=== PATIENT | male | born 1965 | race Caucasian/White ===

== ENCOUNTER 2023-08-20 08:52 | Outpatient (AMB) | payer OTHER, SELFPAY ==
[2023-08-20 08:54] VITALS: BP 140/80; PULSE 69; O2SAT 99; BMI 27.8
--- NOTE | 2023-08-20 08:54 | MHC.PC.OV ---
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 Past medical history significant for hypothyroidism, hypercholesteremia, elevated blood pressure without the diagnosis of hypertension. Patient's blood pressure is 140/80 in office today. Patient advised to follow low-salt diet exercise and will follow-up in 3 months for blood pressure recheck. Patient denies any chest pain, palpitations, shortness of breath and syncope. Eye exam recommended every couple years. Patient reports smoked from age [age], patient reports smoking 1 pack a day or if he was drinking alcohol would smoke 2 packs in 1 day. Discussed lung cancer screening program with patient. Patient agreeable to referral Colonoscopy: Patient reports had completed at age 56, states was recommended to follow-up in 5 years,? Tubular adenoma hx, will request records from [facility]. Flu shot declined. Fasting labs ordered. [facility] Medical History (Updated 08/20/23 @ 09:28 by SUDHA Amos) Lipoma of anterior chest wall Surgical History (Updated 08/20/23 @ 09:09 by SUDHA Amos) History of hand surgery H/O right inguinal hernia repair Family History (Updated 08/20/23 @ 09:10 by SUDHA Amos) Mother Diabetes Father Diabetes Alcoholism Sister Diabetes Social History Housing: House Alcohol intake: former Patient Tobacco Use Status: Former Tobacco user Quit Date: 02/2023 Tobacco use type: Cigarette service: No Current occupational status: retired Cognitive needs: No Hearing needs: No Vision needs: No Questionnaire PHQ-9 Over the last 2 weeks, how often have you been bothered by any of the following problems? 1. Little interest or pleasure in doing things: not at all 2. Feeling down, depressed, or hopeless: not at all 3. Trouble falling or staying asleep, or sleeping too much: not at all 4. Feeling tired or having little energy: not at all 5. Poor appetite or overeating: not at all 6. Feeling bad about yourself - or that you are a failure or have let yourself or your family down: not at all 7. Trouble concentrating on things, such as reading the newspaper or watching television: not at all 8. Moving or speaking so slowly that other people could have noticed. Or the opposite - being so fidgety or restless that you have been moving around a lot more than usual: not at all 9. Thoughts that you would be better off or of hurting yourself in some way: not at all Total score: 0 Depression Screening Interpretation: Negative Depression Screening Done: Yes 71747 - PHQ-9 Billing: Yes Source: Developed by Drs. Ilya Waldrop, Jeni Ji, Jose Blair and colleagues, with an educational liam from [employer]. Thrive Questionnaire Date Thrive assessed: 08/20/23 I am a: Patient What is your living situation today?: I have a steady place to live Within the past 12 months, did the food you bought not last and you didn't have the money to get more?: Never true Within the past 12 months, did you worry whether your food would run out before you got money to buy more?: Never true Do you have trouble paying for medicines?: No Do you have trouble getting transportation to medical appointments?: No Do you have trouble paying your heating and electricity bill?: No Do you have trouble taking care of your child, family member or friend?: No Do you have trouble with day-to-day activities such as bathing, preparing meals, shopping, managing finances, etc.?: No Are you currently unemployed and looking for a job?: No Are you interested in more education?: No AUDIT C Alcohol Use Questionnaire (AUDIT-C) 1. How often do you have a drink containing alcohol?: Never (quit 3 years ago ) 2. How many drinks containing alcohol do you have on a typical day when you are drinking?: 1 or 2 3. How often do you have six or more drinks on one occasion?: Never Total Score: 0 JONATHAN-7 AMB Questionnaire JONATHAN-7 Date JONATHAN - 7 assessed: 08/20/23 Feeling nervous, anxious, or on edge: 0 = Not at all Not being able to stop or control worryin = Not at all Worrying too much about different things: 0 = Not at all Trouble relaxin = Not at all Being so restless that it is hard to sit still: 0 = Not at all Becoming easily annoyed or irritable: 0 = Not at all Feeling afraid as if something awful might happen: 0 = Not at all Total JONATHAN-7 score (0-4 normal; 5-9 mild; 10-14 moderate; 15-21 severe): 0 Source: Developed by Drs. Ilya Waldrop, Jeni Ji, Jose Blair and colleagues, with an educational liam from [employer]. JOANTHAN-7 Assessment Billing JONATHAN-7 Assessment Tool: JONATHAN-7 Assessment 27674 Review of Systems Const Denies chills, Denies fatigue, Denies fever(s) and Denies poor appetite Eyes Denies no additional complaints ENT Reports Normal hearing present Card Denies chest pain, Denies syncope, Denies rapid heart rate and Denies dyspnea Resp Denies cough and Denies dyspnea GI Denies change in stool character, Denies constipation, Denies diarrhea, Denies nausea and Denies vomiting Denies dysuria, Denies urinary frequency and Denies urinary urgency Neuro Reports Normal hearing present, Denies confusion and Denies syncope Psych Denies confusion Endo Denies fatigue Physical exam (Primary Care) Vital Signs: Last Vital Signs Pulse 69 08/20/23 08:54 BP 140/80 H 08/20/23 08:54 Pulse Ox 99 08/20/23 08:54 Oxygen Delivery Method Room Air 08/20/23 08:54 BMI result Body Mass Index 27.8 Tobacco/Smoking Status: Tobacco use Status Tobacco use date assessed 08/20/23 08/20/23 09:03 Patient Tobacco Use Status Former Tobacco user 08/20/23 09:11 Tobacco use type Cigarette 08/20/23 09:11 PHQ-9: PHQ-9 Score PHQ-9: Total score 0 08/20/23 09:12 Depression Screening Interpretation: Negative Thrive Assessment: Date of Thrive Assessment Date Thrive assessed 08/20/23 08/20/23 09:03 Const General: No confusion Orientation/consciousness: No confusion HENMT Head: Yes normocephalic and Yes atraumatic Ears: external ears normal and TM's normal bilaterally General nose exam: Normal external nose present and Normal nasal mucous membranes and turbinates present Face and sinus: Yes normal facial exam and Yes sinuses nontender Mouth: moist mucous membranes Throat: Yes tonsils normal Eyes Conjunctivae: conjunctivae normal Sclerae: sclerae normal Pupils: Equal, round and reactive pupils present and Pupils normal by confrontation EOM: EOMs intact bilaterally Direct Ophthalmoscopy: normal light reflex Neck Neck: Yes no lymphadenopathy and Yes supple Thyroid: Thyroid normal Chest Chest palpation & inspection: normal inspection of the chest Resp Effort & Inspection: normal respiratory effort Auscultation: clear to auscultation bilaterally, no crackles, no rhonchi and no wheezes Cardio Rate: regular rate Rhythm: regular rhythm Peripheral pulses: radial pulses present and dorsalis pedis present GI Inspection: Yes normal to inspection Palpation (GI): Soft to palpation, nontender and No hepatosplenomegaly present Auscultation: normoactive bowel sounds Skin General skin exam: no rashes or lesions noted Neuro General: No confusion Cranial nerves: Yes Equal, round and reactive pupils present and Yes Normal hearing present Cognition (Neuro): normal cognition Gait exam (Neuro): Normal gait present Motor exam (neuro): 5/5 motor strength present throughout Deep tendon reflexes (DTR's): Right brachioradialis reflex intensity grade: 2+, Left brachioradialis reflex intensity grade: 2+, Right patellar reflex intensity grade: 2+ and Left patellar reflex intensity grade: 2+ Extrem General: No edema Assessment and Plan Assessment & Plan (1) Hypothyroidism: Code(s): E03.9 - Hypothyroidism, unspecified Plan: Continue on levothyroxine 75 mcg daily TSH level ordered (2) Hypercholesteremia: Code(s): E78.00 - Pure hypercholesterolemia, unspecified Plan: Fasting lipid panel ordered. Avoid fried foods, chicken skin, eggs, butter,margarine, pastries and?? red meat. (3) Physical exam, annual: Code(s): Z00.00 - Encounter for general adult medical examination without abnormal findings Plan: Follow-up in 1 year. (4) Elevated blood pressure reading in office without diagnosis of hypertension: Code(s): R03.0 - Elevated blood-pressure reading, without diagnosis of hypertension Plan: Blood pressure elevated office today 140/80. Patient advised to follow low-salt diet exercise. Follow-up in 3 months for blood pressure recheck. (5) Smoker within last 12 months: Code(s): Z87.891 - Personal history of nicotine dependence Plan Follow-up in 3 months Orders: Orders Complete Blood Count Auto Diff Today Z13.0 - Encounter for screening for diseases of the blood and blood-forming organs and certain disorders involving the immune mechanism Comprehensive [place]. Panel Fast Today E78.00 - Pure hypercholesterolemia, unspecified Lipid Panel Today E78.00 - Pure hypercholesterolemia, unspecified TSH reflex Free T4 Today Z13.29 - Encounter for screening for other suspected endocrine disorder Prostate Specific Antigen Scr Today Z12.5 - Encounter for screening for malignant neoplasm of prostate Referrals Thoracic Surgery Referral Z87.891 - Personal history of nicotine dependence Coding Level of Care Code New Pt Prev Care 40-64y(74023) Diagnoses Hypothyroidism E03.9 Hypercholesteremia E78.00 Physical exam, annual Z00.00 Elevated blood pressure reading in office without diagnosis of hypertension R03.0 Smoker within last 12 months Z87.891 Additional Codes JONATHAN-7 Assessment Billing - JONATHAN-7 Assessment Tool: JONATHAN-7 Assessment 56117 ([id number])
== END 2023-08-20 09:24 | disposition home or self-care (01) ==
PROVIDERS: PCP Nurse Practitioner Family; Visit Provider Nurse Practitioner Family
DX: E03.9 Hypothyroidism, unspecified (principal); E78.00 Pure hypercholesterolemia, unspecified; Z00.00 Encounter for general adult medical examination without abnormal findings; R03.0 Elevated blood-pressure reading, without diagnosis of hypertension; Z87.891 Personal history of nicotine dependence
CPT/HCPCS: 99386

== ENCOUNTER 2023-09-14 06:10 | Outpatient (REF) | payer OTHER, SELFPAY ==
[2023-09-14 06:21] LABS: MANUAL DIFF FLAG NO
[2023-09-14 07:34] LABS: Basophils Absolute Auto 0.2 X10*3/uL (0.0-0.2); Eosinophils Absolute Auto 0.5 X10*3/uL (0.0-0.4); Eosinophils Percent Auto 5.1 % (0-4); Hematocrit 43.2 % (42.0-52.0); Hemoglobin 15.1 g/dl (14.0-18.0); Imm Gran Abs Auto 0.03 X10*3/uL (0.00-0.03); Imm Gran Pct Auto 0.3 % (0.0-0.4); Lymphocytes Absolute Auto 2.9 X10*3/uL (1.2-4.9); Lymphocytes Percent Auto 30.3 % (20-40); Mean Corpuscular Hemoglobin 31.1 pg (27.0-33.0); Mean Corpuscular Volume 88.9 fL (80.0-98.0); Mean Platelet Volume 11.2 fL (9.4-12.4); Monocytes Absolute Auto 0.7 X10*3/uL (0.1-1.2); Monocytes Percent Auto 7.1 % (2-11); Neutrophils Absolute Auto 5.2 x10*3/uL (2.0-8.3); Neutrophils Percent Auto 55.2 % (45-73); Platelet Count 427 X10*3/uL (160-400); Red Blood Count 4.86 X10*6/uL (4.60-5.80); Red Cell Distribution Width 12.4 % (11.0-16.0); White Blood Count 9.5 X10*3/uL (4.8-10.8)
[2023-09-14 08:20] LABS: Alanine Aminotransferase 31 U/L (0-40); Albumin Level 4.4 g/dL (3.5-5.0); Alkaline Phosphatase 94 U/L (39-117); Aspartate Amino Transferase 21 U/L (5-37); Bilirubin Total 0.4 mg/dL (0.0-1.0); Blood Urea Nitrogen 11 mg/dL (9-16); Calcium 9.7 mg/dL (8.4-10.2); Cholesterol 240 mg/dL (<200); Estimated Glomerular Filt Rate > 60; Glucose Fasting 106 mg/dL (60-99); HDL Cholesterol 35 mg/dL (>40); LDL Cholesterol Calculated 138 mg/dL (<100); Total Protein 7.8 g/dL (6.5-8.0); Triglycerides 337 mg/dL (<150)
[2023-09-14 08:21] LABS: Prostate Specific Antigen Scr 0.46 ng/mL (<0.05-4.0)
[2023-09-14 08:32] LABS: TSH reflex Free T4 55.91 uIU/mL (0.32-4.0)
[2023-09-14 08:43] LABS: Anion Gap 12 (12-20); Carbon Dioxide 24 mmol/L (22-29); Chloride 107 mmol/L (96-108); Potassium 4.2 mmol/L (3.3-5.1); Sodium 139 mmol/L (135-145)
[2023-09-14 09:06] LABS: Free T4 (Free Thyroxine) 0.46 ng/dL (0.71-1.85)
== END 2023-09-14 06:11 | disposition home or self-care (01) ==
LOC: HO.LAB 06:10
PROVIDERS: PCP Nurse Practitioner Family; Visit Provider Nurse Practitioner Family
DX: Z12.5 Encounter for screening for malignant neoplasm of prostate (principal); Z13.0 Encounter for screening for diseases of the blood and blood-forming organs and certain disorders involving the immune mechanism; Z13.29 Encounter for screening for other suspected endocrine disorder; E78.00 Pure hypercholesterolemia, unspecified
CPT/HCPCS: 36415; 80053; 80061; 84153; 84439; 84443; 85025

== ENCOUNTER 2023-11-05 10:54 | Outpatient (AMB) | payer OTHER, SELFPAY ==
--- NOTE | 2023-11-05 11:04 | MHC.OFFVIS ---
Intake Intake Visit Reasons: LDCT SD Allergies morphine Allergy (Mild, Uncoded 08/20/23 08:57) Vomiting HPI HPI Comments History of Present Illness Details Dagoberto is a pleasant 58 year old male, former smoker with a 46 PYH. Patient has been smoking since age 13 for 46 years at 1 ppd, quit approximately 1 year ago. Admits daily marijuana use. 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 Denies second hand smoke exposure. Denies known family history of lung cancer. Denies personal history of cancers. Denies recent travel outside the [place]. Denies fever, chills, chest pain, new cough, hemoptysis or unintentional weight loss. Lung Cancer Screening Questionnaire reviewed with patient by provider. Shared Decision Making Completed. Discussed in detail with patient, the risk versus benefit of LDCT screening. Patient in agreement of proceeding with scan. [facility] Medical History (Updated 09/14/23 @ 10:18 by SUDHA Amos) Deafness in left ear Lipoma of anterior chest wall Surgical History (Updated 08/20/23 @ 09:09 by SUDHA Amos) History of hand surgery H/O right inguinal hernia repair Family History (Updated 08/20/23 @ 09:10 by SUDHA Amos) Mother Diabetes Father Diabetes Alcoholism Sister Diabetes Social History Housing: House Alcohol intake: former Patient Tobacco Use Status: Former Tobacco user Quit Date: 02/2023 Tobacco use type: Cigarette service: No Current occupational status: retired Cognitive needs: No Hearing needs: No Vision needs: No Assessment & Plan Assessment & Plan (1) Smoker within last 12 months: Code(s): Z87.891 - Personal history of nicotine dependence Plan Shared decision-making visit completed today in office. This patient meets criteria for LDCT for lung cancer screening purposes and is asymptomatic. Patient has been scheduled for a low dose chest CT for screening purposes at [facility]. We discussed how the results will be obtained depending on CT findings. RADS 1 and RADS 2 will receive a letter with results and will follow up for annual LDCT. Patient informed they will be contacted at later date to schedule upcoming LDCT scan. RADS 3 and RADS 4 will receive a telephone call, or an office visit after reviewing case at our Lung Cancer Conference to determine when the next LDCT will be scheduled or further interventions that may be needed. Discussed importance of screening program and compliance with yearly LDCT scan as scheduled. Risks, benefits, and alternatives were discussed in detail and patient agrees to proceed. Risks discussed include but are not limited to: radiation exposure and possibility of additional intervention for benign disease. Benefits include detection of lung cancer at an early stage. A copy of today's visit and LDCT results will be sent to patient's PCP. Incidental findings on LDCT are PCP's responsibility. If there are incidental findings, our office will ensure that PCP office is aware of these findings. All questions were answered and patient is in agreement of plan. Coding Level of Care Code Lung Cancer Screening G0296 Diagnoses Smoker within last 12 months Z87.891
== END 2023-11-05 11:12 | disposition home or self-care (01) ==
PROVIDERS: PCP Nurse Practitioner Family; Visit Provider Nurse Practitioner Family
DX: Z87.891 Personal history of nicotine dependence (principal)
CPT/HCPCS: G0296

== ENCOUNTER 2023-11-05 11:13 | Outpatient (REF) | payer OTHER, SELFPAY ==
--- NOTE | ~2023-11-05 | CT_ITS ---
EXAMINATION: CT CHEST SCREENING CLINICAL INFORMATION: Personal history of nicotine dependence. 43 pack year; quit x 6 months. COMPARISON: None available. TECHNIQUE: Multidetector volumetric CT imaging of the chest is performed without contrast using low dose technique. Additional 2D coronal and sagittal reformatted images and axial 3D maximum intensity projection (MIP) images are generated on the CT workstation. This CT examination was performed using dose optimization techniques as appropriate, variously including the following: *Automated exposure control. *Adjustment of mA and/or kV according to patient size (this includes techniques or standardized protocols for targeted exams where dose is matched to indication/reason for exam; i.e. extremities or head). *Use of iterative reconstruction technique. DLP: 55.01 mGy-cm FINDINGS: LUNGS: Scattered punctate calcified granulomas are present ranging in size from 1 mm to 3 mm (5:366). There are a number of small noncalcified micronodules, the largest measuring: * 4 mm left upper lobe (5:177). * 3 mm right upper lobe (5:219). * 3 mm lingula (5:253). No worrisome or concerning-appearing nodules or masses are seen. MEDIASTINUM: The mediastinum is unremarkable. CORONARY ARTERY CALCIFICATION: None visualized on this study. PLEURA: There is no pleural effusion. No pleural mass or thickening. AXILLA: No lymphadenopathy. UPPER ABDOMEN: Unremarkable OSSEOUS STRUCTURES: Unremarkable. CT/CT lung screening IMPRESSION: Benign-appearing pulmonary nodules. ASSESSMENT: Lung-RADS category 2: Benign. RECOMMENDATION: Routine annual low-dose CT screening in 12 months.
== END 2023-11-05 11:14 | disposition home or self-care (01) ==
LOC: HO.CT 11:13
PROVIDERS: PCP Nurse Practitioner Family; Visit Provider Nurse Practitioner Family
DX: Z12.2 Encounter for screening for malignant neoplasm of respiratory organs (principal); Z87.891 Personal history of nicotine dependence
CPT/HCPCS: 71271; G0296

== ENCOUNTER 2023-11-22 06:22 | Outpatient (REF) | payer OTHER, SELFPAY ==
[2023-11-22 07:52] LABS: Estimated Average Glucose 111 mg/dL; Hemoglobin A1c % 5.5 % (<6.0)
[2023-11-22 08:17] LABS: Alanine Aminotransferase 27 U/L (0-40); Albumin Level 4.3 g/dL (3.5-5.0); Alkaline Phosphatase 85 U/L (39-117); Anion Gap 11 (12-20); Aspartate Amino Transferase 28 U/L (5-37); Bilirubin Total 0.3 mg/dL (0.0-1.0); Blood Urea Nitrogen 12 mg/dL (9-16); Calcium 9.7 mg/dL (8.4-10.2); Carbon Dioxide 25 mmol/L (22-29); Chloride 107 mmol/L (96-108); Cholesterol 186 mg/dL (<200); Estimated Glomerular Filt Rate > 60; Glucose Fasting 105 mg/dL (60-99); HDL Cholesterol 35 mg/dL (>40); LDL Cholesterol Calculated 102 mg/dL (<100); Potassium 4.1 mmol/L (3.3-5.1); Sodium 139 mmol/L (135-145); Total Protein 7.6 g/dL (6.5-8.0); Triglycerides 249 mg/dL (<150)
[2023-11-22 08:35] LABS: TSH reflex Free T4 1.44 uIU/mL (0.32-4.0)
== END 2023-11-22 06:23 | disposition home or self-care (01) ==
LOC: HO.LAB 06:22
PROVIDERS: Visit Provider Nurse Practitioner Family
DX: R73.01 Impaired fasting glucose (principal); E78.00 Pure hypercholesterolemia, unspecified; Z13.29 Encounter for screening for other suspected endocrine disorder
CPT/HCPCS: 36415; 80053; 80061; 83036; 84443

== ENCOUNTER 2023-11-22 09:50 | Outpatient (AMB) | payer OTHER, SELFPAY ==
--- NOTE | 2023-11-22 09:51 | A.OFFPC_ITS ---
Vital Signs 11/22/23 09:53 Height 5 ft 5 in Weight 170 lb 8 oz BMI 28.4 BP 112/68 Blood Pressure Location Lt brachial Position Sitting Pulse 78 Pulse Source Pulse Oximeter Pulse Oximetry (%) 99 Oxygen Delivery Method Room Air Intake Visit Reasons: 3mth f/u Elevated BP Intake Note: Patient is here to follow up on high blood pressure. Requesting for Dermatology referral for rash on/ redness on both hands, referral to ENT due to constant ringing in the left ear. 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 I will be assuming his care as his previous primary care provider has left the practice. Patient had blood work done today and would like to get the results on the same. He is taking the cholesterol and thyroid medication at the suggested dose regularly. Patient has noticed a ringing sensation in the left ear. He is having difficulty maintaining a conversation with his . He is deaf in the right ear as a child. Patient underwent a low-dose CT of the chest for lung cancer screening. He would like to know the result. Patient also has severe eczema in both his hands with disfigured nails. He wants to see a electromedical equipment repairer and unfortunately his insurance changed. He has had this condition all his life. [facility] Medical History (Updated 11/22/23 @ 10:45 by Andrew Delarosa MD) Hypercholesteremia Hypothyroidism Deafness in right ear Tinnitus of left ear Dystrophic nail Eczema of both hands Lipoma of anterior chest wall Surgical History History of hand surgery H/O right inguinal hernia repair Family History Mother Diabetes Father Diabetes Alcoholism Sister Diabetes Other Substance use disorder Social History Housing: House Alcohol intake: former Patient Tobacco Use Status: Former Tobacco user Quit Date: 02/2023 Tobacco use type: Cigarette e-Cigarette/Vaping Use: Never Used Second Hand Smoke Exposure: Yes service: No Current occupational status: retired Cognitive needs: No Hearing needs: No Vision needs: No Questionnaire PHQ-9 Over the last 2 weeks, how often have you been bothered by any of the following problems? 1. Little interest or pleasure in doing things: not at all 2. Feeling down, depressed, or hopeless: not at all 3. Trouble falling or staying asleep, or sleeping too much: not at all 4. Feeling tired or having little energy: not at all 5. Poor appetite or overeating: not at all 6. Feeling bad about yourself - or that you are a failure or have let yourself or your family down: not at all 7. Trouble concentrating on things, such as reading the newspaper or watching television: not at all 8. Moving or speaking so slowly that other people could have noticed. Or the opposite - being so fidgety or restless that you have been moving around a lot more than usual: not at all 9. Thoughts that you would be better off or of hurting yourself in some way: not at all Total score: 0 Depression Screening Interpretation: Negative Depression Screening Done: Yes Source: Developed by Drs. Ilya Waldrop, Jeni Ji, Jose Blair and colleagues, with an educational liam from [employer]. Thrive Questionnaire Date Thrive assessed: 11/22/23 I am a: Patient What is your living situation today?: I have a steady place to live Within the past 12 months, did the food you bought not last and you didn't have the money to get more?: Never true Within the past 12 months, did you worry whether your food would run out before you got money to buy more?: Never true Do you have trouble paying for medicines?: No Do you have trouble getting transportation to medical appointments?: No Do you have trouble paying your heating and electricity bill?: No Do you have trouble taking care of your child, family member or friend?: No Do you have trouble with day-to-day activities such as bathing, preparing meals, shopping, managing finances, etc.?: No Are you currently unemployed and looking for a job?: No Are you interested in more education?: No Currently or been in a relationship where the following occur: no concerns reported THRIVE Score: 0 AUDIT C Alcohol Use Questionnaire (AUDIT-C) 1. How often do you have a drink containing alcohol?: Never Total Score: 0 JONATHAN-7 AMB Questionnaire JONATHAN-7 Date JONATHAN - 7 assessed: 11/22/23 Feeling nervous, anxious, or on edge: 0 = Not at all Not being able to stop or control worryin = Not at all Worrying too much about different things: 0 = Not at all Trouble relaxin = Not at all Being so restless that it is hard to sit still: 0 = Not at all Becoming easily annoyed or irritable: 0 = Not at all Feeling afraid as if something awful might happen: 0 = Not at all Total JONATHAN-7 score (0-4 normal; 5-9 mild; 10-14 moderate; 15-21 severe): 0 Source: Developed by Drs. Ilya Waldrop, Jeni Ji, Jose Blair and colleagues, with an educational liam from [employer]. Physical exam (Primary Care) Vital Signs: Last Vital Signs Pulse 78 11/22/23 09:53 BP 112/68 11/22/23 09:53 Pulse Ox 99 11/22/23 09:53 Oxygen Delivery Method Room Air 11/22/23 09:53 Care Plan Goal for BP management: Blood pressure is in range. BMI result Body Mass Index 28.4 Tobacco/Smoking Status: Tobacco use Status Tobacco use date assessed 11/22/23 11/22/23 09:59 Patient Tobacco Use Status Former Tobacco user 11/22/23 09:59 Tobacco use type Cigarette 11/22/23 09:59 e-Cigarette/Vaping Use Never Used 11/22/23 09:59 PHQ-9: PHQ-9 Score PHQ-9: Total score 0 11/22/23 09:59 Depression Screening Interpretation: Negative Thrive Assessment: Date of Thrive Assessment Date Thrive assessed 11/22/23 11/22/23 09:59 Currently or been in a relationship where the following occur: no concerns reported Const General: cooperative and healthy appearing Nutritional Appearance: well nourished Orientation/consciousness: patient oriented x3 Limitations: no limitations HENMT Head: Yes normal to inspection Eyes General: appearance normal, both eyes and all related structures Neck Neck: Yes normal visual inspection Chest Chest palpation & inspection: normal palpation of entire chest wall Resp Effort & Inspection: normal respiratory effort Skin Other: Right and left hand: Eczematous changes in all fingers, terminal phalangeal deformities with fixed flexion deformities. Nails are thick and dystrophic. Neuro General: patient oriented x3 Assessment and Plan Assessment & Plan (1) Tinnitus of left ear: Code(s): H93.12 - Tinnitus, left ear Plan: ENT appointment has been requested. (2) Eczema of both hands: Code(s): L30.9 - Dermatitis, unspecified Plan: To % hydrocortisone has been started and a dermatology consult has been requested. (3) Dystrophic nail: Code(s): L60.3 - Nail dystrophy Plan: As above. (4) Hypothyroidism: Code(s): E03.9 - Hypothyroidism, unspecified Plan: Blood work reviewed. TSH is in range. Continue Synthroid at the same dosage. Prescription called in. (5) Hypercholesteremia: Code(s): E78.00 - Pure hypercholesterolemia, unspecified Plan: Blood work reviewed. Continue statins at same dosage. Orders: Referrals Ear/Nose/Throat Referral H93.12 - Tinnitus, left ear Dermatology Referral L30.9 - Dermatitis, unspecified, L60.3 - Nail dystrophy Medications: New hydrocortisone 2.5% 1 appl topical BID PRN 20 grams 0RF skin irritation Refilled levothyroxine 125 mcg PO DAILY 90 tabs 1RF atorvastatin 80 mg PO DAILY 90 tabs 1RF Coding Level of Care Code Est Pt Level 4 (87374) Diagnoses Tinnitus of left ear H93.12 Eczema of both hands L30.9 Dystrophic nail L60.3 Hypothyroidism E03.9 Hypercholesteremia E78.00
[2023-11-22 09:53] VITALS: BP 112/68; PULSE 78; O2SAT 99; BMI 28.4
== END 2023-11-22 11:12 | disposition home or self-care (01) ==
PROVIDERS: PCP Internal Medicine; Visit Provider Internal Medicine
DX: H93.12 Tinnitus, left ear (principal); L30.9 Dermatitis, unspecified; L60.3 Nail dystrophy; E03.9 Hypothyroidism, unspecified; E78.00 Pure hypercholesterolemia, unspecified
CPT/HCPCS: 99214

== ENCOUNTER 2025-03-26 06:01 | Outpatient (REF) | payer OTHER, SELFPAY ==
[2025-03-26 07:32] LABS: Estimated Average Glucose 117 mg/dL; Hemoglobin A1c % 5.7 % (<6.0)
[2025-03-26 07:32] LABS: Appearance Urine Clear; Color Urine Yellow; Glucose Urine UA Negative (Negative); Leukocyte Esterase Urine Negative (Negative); Nitrite Urine Negative (Negative); Specific Gravity - Urine 1.015 (1.005-1.025); Urine Blood Negative (Negative); Urine Ketones Negative (Negative); Urine Protein Negative (Neg-Trace)
[2025-03-26 07:58] LABS: Alanine Aminotransferase 53 U/L (0-40); Albumin Level 4.6 g/dL (3.5-5.0); Alkaline Phosphatase 84 U/L (39-117); Anion Gap 10 (12-20); Aspartate Amino Transferase 36 U/L (5-37); Bilirubin Direct 0.1 mg/dL (0.0-0.5); Bilirubin Total 0.4 mg/dL (0.0-1.0); Blood Urea Nitrogen 11 mg/dL (9-16); Calcium 9.6 mg/dL (8.4-10.2); Carbon Dioxide 27 mmol/L (22-29); Chloride 108 mmol/L (96-108); Cholesterol 198 mg/dL (<200); Estimated Glomerular Filt Rate > 60; Glucose Random 108 mg/dL (60-115); HDL Cholesterol 34 mg/dL (>40); Potassium 3.9 mmol/L (3.3-5.1); Sodium 141 mmol/L (135-145); Total Protein 7.6 g/dL (6.5-8.0); Triglycerides 490 mg/dL (<150)
[2025-03-26 08:13] LABS: Thyroid Stimulating Hormone 1.89 uIU/mL (0.32-4.0)
== END 2025-03-26 06:02 | disposition home or self-care (01) ==
LOC: HO.LAB 06:01
PROVIDERS: PCP Internal Medicine; Visit Provider Internal Medicine
DX: Z13.6 Encounter for screening for cardiovascular disorders (principal); Z13.1 Encounter for screening for diabetes mellitus; R03.0 Elevated blood-pressure reading, without diagnosis of hypertension
CPT/HCPCS: 36415; 80048; 80061; 80076; 81003; 83036; 84443

== ENCOUNTER 2025-03-28 13:48 | Outpatient (AMB) | payer OTHER, SELFPAY ==
--- NOTE | 2025-03-28 13:49 | MHC.PC.OV ---
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: No Accompanied by: Self / Same As Patient Allergies morphine Adverse Reaction (Mild, Verified 03/28/25 14:24) Vomiting morphine Allergy (Mild, Uncoded 03/28/25 14:24) Vomiting Medication List - Last Reconciled 03/28/25 by ARSLAN Machuca aspirin 1 tab PO DAILY atorvastatin 80 mg PO DAILY levothyroxine 125 mcg PO DAILY Tobacco use date assessed: 03/28/25 Dental Screening Dental Screen Date: 03/28/25 Did you have a dental visit in the last 12 months?: No Did you have a dental problem in the last 6 months where you did not have access to dental care?: No Was dental information given to patient?: No HPI Rt knee fluid retention HPI Details The patient is a 59 year old male presenting for evaluation of his right knee Reports that he has been having pain and fluid retention in right knee The knee hurts when he walks, starts from when he wakes in the morning reports that his has a knee brace that he has been using that helps a little He was also given a brace in the [facility] when they did imaging of the knee They gave him a brace but it extends all the way up to his groin area, so it was not comfortable Reports an old injury when he was 15 years old, he fell through a roof and bruised his right knee cap However, he was not having any symptoms till lately and this came on sudden without any noted injuries Added, he is always on his knees, 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 Reports that his pain goes up to a 8 or 9 in the morning when he first start to walk on it Reports that he is getting some relief from ibuprofen 800mg couple times/day, and he takes Tylenol PM at night He is walking with an antalgic gait, without any assisting devices right knee brace given in office for support-will get the patient imaging from [facility] to further evaluate [facility] Medical History (Updated 04/10/25 @ 15:18 by ARSLAN Machuca) Personal history of nicotine dependence Hypercholesteremia Hypothyroidism Deafness in right ear Tinnitus of left ear Dystrophic nail Eczema of both hands Lipoma of anterior chest wall Surgical History History of hand surgery H/O right inguinal hernia repair Family History Mother Diabetes Father Diabetes Alcoholism Sister Diabetes Other Substance use disorder Social History Housing: House Alcohol intake: former Patient Tobacco Use Status: Former Tobacco user Tobacco use type: Cigarette e-Cigarette/Vaping Use: Never Used Second Hand Smoke Exposure: Yes service: No Current occupational status: retired Cognitive needs: No Hearing needs: No Vision needs: No Questionnaire PHQ-9 Over the last 2 weeks, how often have you been bothered by any of the following problems? 1. Little interest or pleasure in doing things: several days 2. Feeling down, depressed, or hopeless: not at all 3. Trouble falling or staying asleep, or sleeping too much: several days 4. Feeling tired or having little energy: several days 5. Poor appetite or overeating: not at all 6. Feeling bad about yourself - or that you are a failure or have let yourself or your family down: not at all 7. Trouble concentrating on things, such as reading the newspaper or watching television: not at all 8. Moving or speaking so slowly that other people could have noticed. Or the opposite - being so fidgety or restless that you have been moving around a lot more than usual: not at all 9. Thoughts that you would be better off or of hurting yourself in some way: not at all Total score: 3 Depression Screening Interpretation: Negative Depression Screening Done: Yes 30871 - PHQ-9 Billing: Yes Source: Developed by Drs. Ilya Waldrop, Jeni Ji, Jose Blair and colleagues, with an educational liam from [employer]. Thrive Questionnaire Date Thrive assessed: 03/28/25 I am a: Patient What is your living situation today?: I have a steady place to live Within the past 12 months, did the food you bought not last and you didn't have the money to get more?: Never true Within the past 12 months, did you worry whether your food would run out before you got money to buy more?: I choose not to answer this question Do you have trouble paying for medicines?: I choose not to answer this question Do you have trouble getting transportation to medical appointments?: I choose not to answer this question Do you have trouble paying your heating and electricity bill?: I choose not to answer this question Do you have trouble taking care of your child, family member or friend?: I choose not to answer this question Do you have trouble with day-to-day activities such as bathing, preparing meals, shopping, managing finances, etc.?: I choose not to answer this question Are you currently unemployed and looking for a job?: I choose not to answer this question Are you interested in more education?: I choose not to answer this question Please select the resources that you would like help with: None Currently or been in a relationship where the following occur: No concerns reported THRIVE Score: 0 AUDIT C Alcohol Use Questionnaire (AUDIT-C) 1. How often do you have a drink containing alcohol?: Never Total Score: 0 Score Reviewed/Action Taken: No JONATHAN-7 AMB Questionnaire JONATHAN-7 Date JONATHAN - 7 assessed: 03/28/25 Feeling nervous, anxious, or on edge: 0 = Not at all Not being able to stop or control worryin = Not at all Worrying too much about different things: 0 = Not at all Trouble relaxin = Not at all Being so restless that it is hard to sit still: 0 = Not at all Becoming easily annoyed or irritable: 0 = Not at all Feeling afraid as if something awful might happen: 0 = Not at all Total JONATHAN-7 score (0-4 normal; 5-9 mild; 10-14 moderate; 15-21 severe): 0 Source: Developed by Drs. Ilya Waldrop, Jeni Ji, Jose Blair and colleagues, with an educational liam from [employer]. JONATHAN-7 Assessment Billing JONATHAN-7 Assessment Tool: JONATHAN-7 Assessment 60052 Review of Systems ENT Denies sore throat Card Denies chest pain, Denies leg edema and Denies lightheadedness Resp Denies cough, Denies hemoptysis and Denies wheezing Musc Reports arthralgias (right knee) and Reports joint swelling (right knee) Neuro Denies Abnormal speech present Romel/Lymph Denies easy bleeding and Denies easy bruising Aller/Immun Denies wheezing Physical exam (Primary Care) Vital Signs: Last Vital Signs Temp 97.8 F 03/28/25 13:50 Pulse 79 03/28/25 13:50 Resp 18 03/28/25 13:50 BP 150/82 H 03/28/25 13:50 Pulse Ox 97 03/28/25 13:50 Oxygen Delivery Method Room Air 03/28/25 13:50 BMI result Body Mass Index 29.6 Tobacco/Smoking Status: Tobacco use Status Tobacco use date assessed 03/28/25 03/28/25 13:59 Patient Tobacco Use Status Former Tobacco user 03/28/25 13:49 Tobacco use type Cigarette 03/28/25 13:49 e-Cigarette/Vaping Use Never Used 03/28/25 13:49 PHQ-9: PHQ-9 Score PHQ-9: Total score 3 03/28/25 14:33 Depression Screening Interpretation: Negative Thrive Assessment: Date of Thrive Assessment Date Thrive assessed 03/28/25 03/28/25 13:59 Currently or been in a relationship where the following occur: No concerns reported Const General: healthy appearing, no acute distress, alert and awake Nutritional Appearance: well nourished Orientation/consciousness: oriented to person, oriented to place and oriented to time HENMT Ears: external ears normal General nose exam: Normal external nose present Eyes Conjunctivae: conjunctivae normal Sclerae: sclerae normal Pupils: Equal, round and reactive pupils present Neck Neck: Yes no lymphadenopathy and Yes no JVD Thyroid: Thyroid normal Carotids: no bruits Resp Effort & Inspection: normal respiratory effort and not tachypneic Auscultation: no crackles, no rales, no rhonchi and no wheezes Cardio Rate: regular rate Rhythm: regular rhythm Heart sounds: no murmurs and normal S1 and S2 GI Palpation (GI): Soft to palpation, nontender, no hepatomegaly and no splenomegaly Auscultation: normal bowel sounds Skin General skin exam: no rashes or lesions noted and dry skin Neuro General: oriented to person, oriented to place and oriented to time Cranial nerves: Yes Equal, round and reactive pupils present Speech: No Abnormal speech present Gait exam (Neuro): Normal gait present Extrem Right upper extremity: full ROM Left upper extremity: full ROM Right lower extremity: full ROM and knee Details: tenderness Location: of the medial joint line and of the pre-patellar area and swelling Location: of the pre-patellar area; no crepitus Left lower extremity: full ROM; no edema Coding Level of Care Code Est Pt Level 3 (62439) Diagnoses Right knee pain, unspecified chronicity M25.561 Chronicity: unspecified Additional Codes JONATHAN-7 Assessment Billing - JONATHAN-7 Assessment Tool: JONATHAN-7 Assessment 47396 ([id number]) PHQ-9 - 83169 - PHQ-9 Billing: Yes ([id number]) Time Spent (min) 31 Assessment & Plan Assessment & Plan (1) Right knee pain: Code(s): M25.561 - Pain in right knee Category: Medical Qualifiers: Chronicity: unspecified Qualified Code(s): M25.561 - Pain in right knee Plan: The patient was evaluated at [facility] ER for his right knee pain. X-ray showed normal alignment, small marginal osteophyte, preserved joint spaces and moderate suprapatellar effusion. Which is a sign of early her mild osteoarthritis. The patient was given a knee brace and recommended to use NSAIDs and continue modifying activity as tolerated.Per patient, he is busy caring for his right now, so PT is doable. Will refer the patient to orthopedics for an evluation.
[2025-03-28 13:50] VITALS: BP 150/82; PULSE 79; RESP 18; TEMP 36.6; O2SAT 97; BMI 29.6
--- OUTSIDE RECORDS SUMMARY | 2025-03-28 15:41 | XMS_ITS | Clinical Summary ---
Author Organization [address] Address [address] [place] [id number] Phone Care Team Providers Care Senior Physician Name Role Phone Unavailable Primary Care Provider Unavailabl e Allergies Active Allergy Reactions Criticality Noted Date Comments Morphine Nausea And Vomiting 03/11/2018 Medications acetaminophen (TYLENOL 8 HOUR) 650 mg 8 hr tablet Take 650 mg by mouth every 8 hours as needed. Active levothyroxine (SYNTHROID, LEVOTHROID) 112 mcg tablet Take 125 mcg by mouth 1 (one) time each day before breakfast. 07/28/2023 Active aspirin 81 mg chewable tablet Chew 1 tablet (81 mg total) 1 (one) time each day. Active atorvastatin (LIPITOR) 80 mg tablet Take 1 tablet (80 mg total) by mouth 1 (one) time each day. 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 HERNIA REPAIR August 22 PROCEDURE: REPAIR INGUINAL HERNIA Medical History Medical History Date Comments Hand injuries, right, sequela DX :Hand injuries, right, sequela Family History Medical History Relation Name Comments Alcohol abuse Father Diabetes Father Diabetes Mother Diabetes Sister Relation Name Status Comments Father Mother Alive Sister Alive Social History Tobacco Use Types Packs/Day Years Used Date Smoking Tobacco: Former Cigarettes Q uit: 10/18/2022 Smokeless Tobacco: Never Tobacco Cessation:Counseling Given: Not Answered Alcohol Use Standard Drinks/Week Comments No 0 (1 standard drink = 0.6 oz pur e alcohol) Sex and Gender Information Value Date Recorded Sex Assigned at Not on file Legal Sex Male 2:23 AM EST Gender Identity Not on file Sexual Orientation Not on file Obstetrics History Last Filed Vital Signs Vital Sign Reading Time Taken Comments Blood Pressure 110/70 12/20/2024 9:58 AM EST Pulse 76 12/20/2024 9:58 AM EST Temperature 37 ??C (98.6 ??F) 12/20/2024 9:58 AM EST Respiratory Rate 14 12/20/2024 9:58 AM EST Oxygen Saturation - - Inhaled Oxygen Concentration - - Weight 80.6 kg (177 lb 9.6 oz) 12/20/2024 9:58 A M EST Height 165.1 cm (5' 5 ) 12/20/2024 9:58 AM EST Body Mass Index 29.55 12/20/2024 9:58 AM EST Plan of Treatment Health Maintenance Due Date Last Done Comments Hepatitis B Vaccines (1 of 3 - 19+ 3-dose series) 1985 Pneumococcal Vaccine: 50+ Years (1 of 1 - PCV) 2016 Zoster Vaccines (1 of 2) 2016 Depression Screening 09/26/2022 HIV Screening 09/26/2022 Social Influencers of Health Screening 09/26/2022 COVID-19 Vaccine ( - 2023-2 5 season) 2024 Influenza Vaccine (Season Ended) 2025 Colorectal Cancer Screening: Colonoscopy 11/11/2025 11/11/2020, 11/11/2020 DTaP,Tdap,and Td Vaccines (2 - Td or Tdap) 03/11/2028 03/11/2018 Cholesterol Screening (Lipid Panel) 06/05/2028 06/05/2023, 02/09/2022 Hepatitis C Screening Completed 06/30/2022 HIB Vaccines Aged Out No longer eligi ble based on patient's age to complete this topic HPV Vaccines Aged Out No longer eligi ble based on patient's age to complete this topic Hepatitis A Vaccines Aged Out No long er eligible based on patient's age to complete this topic IPV Vaccines Aged Out No longer eligi ble based on patient's age to complete this topic MMR Vaccines Aged Out No longer eligi ble based on patient's age to complete this topic Meningococcal ACWY Vaccine Aged Out N o longer eligible based on patient's age to complete this topic Meningococcal B Vaccine Aged Out No l onger eligible based on patient's age to complete this topic Pneumococcal Vaccine: Pediatrics (0 to 5 Years) and At-Risk Patients (6 to 64 Years) Aged Out No longer eligible b ased on patient's age to complete this topic RSV Immunization Patients Under 20 months Aged Out No longer eligible b ased on patient's age to complete this topic Varicella Vaccines Aged Out No longer eligible based on patient's age to complete this topic Procedures Procedure Name Priority Date/Time Associated Diagnosis Comments HEPATITIS C SCREENING Routine 06/30/2022 LIPID PANEL Routine 02/09/2022 COLONOSCOPY Routine 11/11/2020 from Last 3 Months or Most Recently Relevant to Health Maintenance Results * Hepatitis C Screening (06/30/2022) Hepatitis C Screening abstracted [facility] Provider HEALTH MAINTENANCE Final Result * (ABNORMAL) Lipid panel (02/09/2022) LDL/HDL Ratio 6(A) 0 - 4 Triglycerides 235(A) 0 - 150 mg/dL Cholesterol 196 0 - 200 mg/dL HDL 33(A) >=40 mg/dL LDL Cholesterol 116(A) 0 - 100 mg/dL Blood Venous blood specimen / Unknown Historical Provider LAB BLOOD ORDERABLES Fara l Result * Colonoscopy (11/11/2020) Colonoscopy abnormal, abstracted Anatomical Region Laterality Modality Other Historical Provider HEALTH MAINTENANCE Final Result from Last 3 Months or Most Recently Relevant to Health Maintenance Insurance [place]ICAID - [place]
== END 2025-03-28 14:53 | disposition home or self-care (01) ==
LOC: HO.HMCH 13:48
PROVIDERS: PCP Internal Medicine
DX: M25.561 Pain in right knee (principal)

== ENCOUNTER → 2025-03-28 13:48 | Outpatient (BNVA) | payer OTHER, SELFPAY | PROVIDERS: PCP Internal Medicine | DX: M25.561 Pain in right knee (principal) | CPT/HCPCS: 96127; 99212 ==

== ENCOUNTER 2025-06-14 09:05 | Outpatient (REF) | payer OTHER, SELFPAY ==
--- OUTSIDE RECORDS SUMMARY | 2025-06-14 09:50 | XMS_ITS | Clinical Summary ---
Author Organization [facility] Address [address] [place] [address] Phone Care Team Providers Care Technical Business Systems Analyst Name Role Phone Pcp, Unknown Primary Care Provider Unavailabl e Allergies Active Allergy Reactions Criticality Noted Date Comments Morphine 05/27/2022 Medications levothyroxine (SYNTHROID, LEVOTHROID) 75 MCG tablet Take 112 mcg by mouth every morning. Active diclofenac sodium (VOLTAREN) 50 MG EC tablet Take 50 mg by mouth 2 (two) times a day. Active atorvastatin (LIPITOR) 80 MG tablet Take 1 tablet (80 mg total) by mouth daily. 30 tablet 2 06/06/2023 Active aspirin 81 mg chewable tablet Take 1 tablet (81 mg total) by mouth daily. 90 tablet 2 06/06/2023 Active Active Problems Problem Noted Date Diagnosed Date Dizziness 06/05/2023 Assessment & Plan (06/05/2023 6:16 AM EDT): Patient presented with sudden onset of dizziness this afternoon while working on the roof of his garage. Patient describes it as unsteadiness without diplopia or other vision changes. Symptoms appears to be exacerbated with positional change but Gunjan maneuver was unsuccessful. Symptoms did improve with prolonged rest in bed. During video neuro evaluation in the ED, concern for left dysmetria and advised for MRI to evaluate for left cerebellar stroke. I was unable to appreciate such deficit on my exam. Cranial nerve II to XII appears to be grossly intact. Patient continued to have subjective wooziness. Patient was afebrile and hemodynamically stable. Labs were otherwise unremarkable. Troponins negative. No evidence of anemia. UA negative. Chest x-ray negative. CTA head and neck showed moderate stenosis of proximal right ICA just distal to the bifurcation Given positional change concerning for more peripheral rather than central. But patient no improvement with Gunjan maneuver, meclizine, or Valium. -Patient will be observed on telemetry -N.p.o. except medications (will need bedside swallow evaluation) -Patient received dual antiplatelet with aspirin and Plavix, if acute stroke noted on imaging we will continue aspirin Plavix for 21 days then monotherapy of aspirin. -Continue Lipitor 80 mg q. Nightly -Repeat CBC, CMP in the morning -Fasting lipid, hemoglobin A1c, CRP, ESR -Continue neurochecks every 4 hours -PT OT consult -May need outpatient echo and 30-day event monitor. -Follow-up with neurology outpatient Arthritis Disorder of thyroid Assessment & Plan (06/05/2023 6:18 AM EDT): TSH within normal limits. Continue levothyroxine 112 mcg daily. Family History Medical History Relation Comments Diabetes Father Diabetes Mother Relation Status Comments Father Mother Social History Tobacco Use Types Packs/Day Years Used Date Smoking Tobacco: Former Cigarettes Tobacco Cessation:Counseling Given: Not Answered Alcohol Use Standard Drinks/Week Comments Not Currently 0 (1 standard drink = 0.6 oz pur e alcohol) Education Answer Date Recorded Are you interested in more education? Not on temo e 02/13/2023 Are you concerned about learning? Not on file 02/13/2023 No 02/13/2023 No 02/13/2023 Digital Access Answer Date Recorded No 03/14/2023 No 03/14/2023 Reliable internet access at home? Not on file 03/14/2023 Device with a working camera? Not on file Intimate Partner Violence Answer Date R ecorded Are you denied basic needs s uch as food, clothing, or medical care? No 12/23/2024 In the past 12 months have y ou been in a relationship with a person who hurts, threatens, or tries to control you? No 12/23/2024 Are you denied basic needs s uch as food, clothing, or medical care? No 12/23/2024 In the past 12 months have y ou been in a relationship with a person who hurts, threatens, or tries to control you? No 12/23/2024 Sex and Gender Information Value Date Recorded Sex Assigned at Male 12/23/2024 7:48 AM EST Legal Sex Male 5:01 PM EDT Gender Identity Male 12/23/2024 7:48 AM EST Sexual Orientation Straight 12/23/2024 7: 48 AM EST Last Filed Vital Signs Vital Sign Reading Time Taken Comments Blood Pressure 165/89 12/23/2024 9:57 AM EST Pulse 61 12/23/2024 9:57 AM EST Temperature 36.2 C (97.2 F) 12/23/2024 9:57 AM EST Respiratory Rate 16 12/23/2024 9:57 AM EST Oxygen Saturation 97% 12/23/2024 9:57 AM EST Inhaled Oxygen Concentration - - Weight 80.3 kg (177 lb) 12/23/2024 7:20 AM EST Height 165.1 cm (5' 5 ) 12/23/2024 7:20 AM EST Body Mass Index 29.45 12/23/2024 7:20 AM EST Plan of Treatment Health Maintenance Due Date Last Done Comments Adult Td,Tdap Booster 1966 DEPRESSION SCREENING 1978 SMOKING Hx and SMOKELESS TOBACCO SCREENING 1979 HEPATITIS C SCREENING 1984 HIV ONE-TIME SCREENING (18-6 5 YEARS) 1984 COLOGUARD 2011 COLONOSCOPY 2011 COLORECTAL CANCER SCREENING 2011 FIT TEST 2011 FOBT 2011 SIGMOIDOSCOPY 2011 VIRTUAL COLONOSCOPY 2011 PNEUMOCOCCAL VACCINES (50+ years) (1 of 1 - PCV) 2016 ZOSTER VACCINES (1 of 2) 2016 TSH LEVEL 06/04/2024 06/04/2023 COVID-19 VACCINE (1 - 2023-2 5 season) 2024 SCREENING FOR DIABETES 06/05/2026 , 06/05/2023 LIPID PANEL 06/05/2028 06/05/2023, 02/09/2022 HEPATITIS A VACCINES Aged Out No long er eligible based on patient's age to complete this topic HIB VACCINES Aged Out No longer eligi ble based on patient's age to complete this topic MENINGOCOCCAL VACCINES (ACWY) Aged Out No longer eligible based on patient's age to complete this topic MENINGOCOCCAL VACCINES (B) Aged Out N o longer eligible based on patient's age to complete this topic Medical Devices Not on file Procedures Procedure Name Priority Date/Time Associated Diagnosis Comments LIPID PANEL Routine 06/05/2023 5:56 AM EDT TSH WITH REFLEX Routine 06/04/2023 5:08 PM EDT from Last 3 Months or Most Recently Relevant to Health Maintenance Results * (ABNORMAL) Lipid panel (06/05/2023 5:56 AM EDT) HDL 31 mg/dL [facility] Comment: Interpretation <40 mg/dL: Low HDL cholesterol (major risk factor for CHD) Greater than or equal to 60 mg/dL: High HDL cholesterol ( negative risk factor for CHD) HDL - cholesterol is affected by a number of factors, e.g. smoking, excerise, hormones, sex and age. CHOLESTEROL 295(H) 0 - 240 mg/dL [facility] TRIGLYCERIDES 336(H) 30 - 160 mg/dL [facility] LDL 197(H) 50 - 129 mg/dL [facility] Comment: LDL levels in terms of risk for coronary heart disease: <100 mg/dL: Optimal 100-129 mg/dL: Near or above optimal 130-159 mg/dL: Borderline high 160-189 mg/dL: High >190 mg/dL: Very High CARDIAC RISK RATIO 9.5(H) 3.4 - 5.0 C [facility] Blood 06/05/2023 5:56 AM EDT 06/05/2023 6:50 AM EDT us Estuardo Hdez MD LAB BLOOD ORDERABLES Final Resu lt [facility] [address] [place] [address] * TSH with reflex (06/04/2023 5:08 PM EDT) TSH 2.10 0.27 - 4.20 uIU/mL [facility] 06/04/2023 5:08 PM EDT 06/04/2023 5:18 PM EDT us Ching Cortez MD LAB BLOOD ORDERABLES Final R esult [address] [id number] from Last 3 Months or Most Recently Relevant to Health Maintenance Insurance MEDICARE PART A & B [employer] ONE CARE MEDICARE REPLACEMENT MEDICARE PART A & [facility] ONE CARE MEDICARE REPLACEMENT MEDICARE PART A & B [facility] ONE CARE MEDICARE REPLACEMENT MEDICARE PART A & B [facility] ONE CARE MEDICARE REPLACEMENT MEDICARE PART A & B [facility] ONE CARE MEDICARE REPLACEMENT MEDICARE PART A & B [facility] ONE CARE MEDICARE REPLACEMENT Advance Directives For more information, please contact: [phone] (9AM - 5PM Kassandra/[facility], Wednesday-Wednesday) Documents on File Type Date Recorded Patient Maitre D Expl anation Healthcare Proxy 06/07/2023 2:26 PM * Full Code (Latest Code Status on File) Date Activated Date Inactivated Comments 06/05/2023 5:24 AM Question Answer Comments Code Status Confirmed With: Patient Code Status Communicated To: Inpatient Attending Care Teams Technical Business Systems Analyst Relationship Specialty Start Date End Date Pcp, Unknown PCP - General 12/23/24 Additional Source Comments The information contained in this document represents components of the legal health record. It is not the complete legal health record.[facility]
--- OUTSIDE RECORDS SUMMARY | 2025-06-14 09:50 | XMS_ITS | Encounter Summary ---
Author Organization [facility] Address [address] [place] [phone] Phone Care Team Providers Care Filleter Name Role Phone Pcp, Unknown Primary Care Provider Unavailabl e Pcp, Unknown Primary Care Provider Unavailabl e Encounter Details Date Type Department Care Team (Late st Contact Info) Description 06/04/2023 Procedure Pass [facility], Ct Scan - [facility] [address] [place] [address] Social History Tobacco Use Types Packs/Day Years Used Date Smoking Tobacco: Never Assessed Education Answer Date Recorded Are you interested [...] as food, clothing, or medical care? No 06/04/2023 In the past 12 months have y ou been in a relationship with a person who hurts, threatens, or tries to control you? No 06/04/2023 Are you denied basic needs s uch as food, clothing, or medical care? No 06/04/2023 In the past 12 months have y ou been in a relationship with a person who hurts, threatens, or tries to control you? No 06/04/2023 Sex and Gender Information Value Date Recorded Sex Assigned at Male 12/23/2024 7:48 AM EST Legal Sex Male 5:01 PM EDT Gender Identity Male 12/23/2024 7:48 AM EST Sexual Orientation Straight 12/23/2024 7: 48 AM EST documented as of this encounter Functional Status * Calculated C-SSRS Risk Score (Lifetime/Recent) Answer Date of Assessment Author No Risk Indicated 06/05/2023 2:00 AM ELOT Lisa Wise RN * [place] Suicide Severity Rating Scale (Screener/Recent Self-Report) Question Answer Date of Assessment Author 1. Wish to be (Past 1 Month) No 06/05/2023 2:00 AM Lisa Heath RN 2. Non-Specific Active Suicidal Thoughts (Past 1 Month) No 06/05/2023 2:00 AM Lisa Heath RN 6. Suicidal Behavior (Lifetime) No 06/05/2023 2:00 AM Lisa Heath RN documented as of this encounter Plan of Treatment Not on file documented as of this encounter Visit Diagnoses Not on filedocumented in this encounter Care Teams Filleter Relationship Specialty Start Date End Date Pcp, Unknown PCP - General 05/27/22 12/22/24 Pcp, Unknown PCP - General 12/23/24 documented as of this encounter Additional Source Comments The information contained in this document represents components of the legal health record. It is not the complete legal health record.[facility]
--- OUTSIDE RECORDS SUMMARY | 2025-06-14 09:50 | XMS_ITS | Clinical Summary ---
Author Organization [address] Address [address] [place] [phone] Phone Care Team Providers Care Piano Stringer Name Role Phone Unavailable Primary Care Provider [...] 76 12/20/2024 9:58 AM EST Temperature 37 C (98.6 F) 12/20/2024 9:58 AM EST Respiratory Rate 14 [...] 2016 Zoster Vaccines (1 of 2) 2016 HIV Screening 09/26/2022 Social Influencers of Health Screening 09/26/2022 COVID-19 Vaccine (1 - 2023-2 5 season) 2024 Depression Screening 10/18/2024 Influenza Vaccine (#1) 2025 Colorectal Cancer Screening: Colonoscopy 11/11/2025 11/11/2020, 11/11/2020 DTaP,Tdap,and Td Vaccines (2 - Td or Tdap) 03/11/2028 03/11/2018 Cholesterol Screening (Lipid Panel) 06/05/2028 06/05/2023, 02/09/2022 RSV Immunization Adult Patients (1 - 1-dose 75+ series) 2041 Hepatitis C Screening Completed 06/30/2022 HIB Vaccines [...] Final Result * (ABNORMAL) Lipid panel (02/09/2022) Pathologist [facility] LDL/HDL Ratio 6(A) 0 - 4 Triglycerides 235(A) 0 - 150 mg/dL Cholesterol 196 0 - 200 mg/dL HDL 33(A) >=40 mg/dL LDL Cholesterol 116(A) 0 - 100 mg/dL Blood Venous blood specimen / Unknown [facility] Provider LAB BLOOD ORDERABLES Fara l Result * Colonoscopy (11/11/2020) Colonoscopy abnormal, abstracted Anatomical Region Laterality Modality Other Historical Provider HEALTH MAINTENANCE Final Result from Last 3 Months or Most Recently Relevant to Health Maintenance Insurance MEDICAID - [place]
--- OUTSIDE RECORDS SUMMARY | 2025-06-14 09:50 | XMS_ITS ---
Author Name [facility] Organization Unknown Care Team Organization Name Specialty Phone Email Start Date End Da te [facility] Yoselin Gould Primary Care 01/19/2023 024 [facility] ABDULAZIZ BASHIR Primary Care 08/25/2022 06/05/20 24
--- OUTSIDE RECORDS SUMMARY | 2025-06-14 09:50 | XMS_ITS | Encounter Summary ---
Author Organization [facility] Address [address] [place] [phone] Phone Care Team Providers Care Logistic Specialist Name Role Phone Pcp, Unknown Primary Care Provider Unavailabl e Pcp, Unknown Primary Care Provider Unavailabl e Encounter Details Date Type Department Care Team (Late st Contact Info) Description 06/05/2023 Procedure Pass [facility], [address] [address] Social History Tobacco Use Types Packs/Day Years Used Date Smoking Tobacco: Former Cigarettes Alcohol Use Standard Drinks/Week Comments Not Currently [...] Author No Risk Indicated 06/05/2023 2:00 AM EDT Lisa Wise RN * [place] Suicide Severity Rating Scale (Screener/Recent Self-Report) Question Answer Date of Assessment Author 1. Wish to be (Past 1 Month) No 06/05/2023 2:00 AM EDT Lisa Wise RN 2. Non-Specific Active Suicidal Thoughts (Past 1 Month) No 06/05/2023 2:00 AM EDT Lisa Wise RN 6. Suicidal Behavior (Lifetime) No 06/05/2023 2:00 AM EDT Lisa Wise RN documented as of this encounter Plan of Treatment Not on file documented as of this encounter Visit Diagnoses Not on filedocumented in this encounter Care Teams Logistic Specialist Relationship Specialty Start Date End Date Pcp, Unknown PCP - General 05/27/22 12/22/24 Pcp, Unknown PCP - General 12/23/24 documented as of this encounter Additional Source Comments The information contained in this document represents components of the legal health record. It is not the complete legal health record.[facility]
== END 2025-06-14 09:06 | disposition home or self-care (01) ==
LOC: HO.HOSX 09:05
PROVIDERS: Visit Provider Orthopaedic Surgery
DX: Z13.89 Encounter for screening for other disorder (principal)

== ENCOUNTER 2025-07-11 08:28 | Outpatient (REF) | payer OTHER, SELFPAY ==
--- NOTE | ~2025-07-11 | XR_ITS ---
CLINICAL HISTORY: M25.561 - Pain in right knee 3 view right knee Comparison: None provided Findings: Bones intact. No dislocations. Moderate medial compartment joint space narrowing. Mild patellofemoral compartment joint space narrowing. No joint effusion. No radiopaque foreign body. IMPRESSION: 1. No acute findings. This document has been electronically signed by: Sonu Campos DO on 07/12/2025 13:30:55
--- OUTSIDE RECORDS SUMMARY | 2025-07-12 09:00 | XMS_ITS | Clinical Summary ---
Author Organization [address] Address [address] [place] [phone] Phone Care Team Providers Care Laborer Carpentry Dock Name Role Phone Unavailable Primary Care Provider [...] C Screening (06/30/2022) Hepatitis C Screening abstracted [facility] Provider HEALTH MAINTENANCE Final Result * (ABNORMAL) Lipid panel (02/09/2022) Pathologist [facility] LDL/HDL Ratio 6(A) 0 - 4 Triglycerides 235(A) 0 - 150 mg/dL Cholesterol 196 0 - 200 mg/dL HDL 33(A) >=40 mg/dL LDL Cholesterol 116(A) 0 - 100 mg/dL Blood Venous blood specimen / Unknown [facility] Provider LAB BLOOD ORDERABLES Fara l Result * Colonoscopy (11/11/2020) Colonoscopy abnormal, abstracted Anatomical Region Laterality Modality Other Historical Provider HEALTH MAINTENANCE Final Result from Last 3 Months or Most Recently Relevant to Health Maintenance Insurance MEDICAID - [place]
--- OUTSIDE RECORDS SUMMARY | 2025-07-12 09:00 | XMS_ITS | Encounter Summary ---
Author Organization [facility] Address [address] [place] [phone] Phone Care Team Providers Care Turf Farm Worker Name Role Phone Pcp, Unknown Primary Care Provider Unavailabl e Pcp, Unknown Primary Care Provider Unavailabl e Encounter Details Date Type Department Care Team (Late st Contact Info) Description 06/04/2023 Procedure Pass [facility], Ct Scan - [address] [address] Social History Tobacco Use Types Packs/Day Years [...] 2:00 AM ELOT Lisa Wise RN * [place] Suicide Severity Rating Scale (Screener/Recent Self-Report) Question [...] on filedocumented in this encounter Care Teams Turf Farm Worker Relationship Specialty Start Date End Date Pcp, Unknown PCP - General 05/27/22 12/22/24 Pcp, Unknown PCP - General 12/23/24 documented as of this encounter Additional Source Comments The information contained in this document represents components of the legal health record. It is not the complete legal health record.[facility]
--- OUTSIDE RECORDS SUMMARY | 2025-07-12 09:00 | XMS_ITS | Encounter Summary ---
Author Organization [facility] Address [address] [place] [phone] Phone Care Team Providers Care Cosmetic Sales Assistant Name Role Phone Pcp, Unknown Primary Care Provider Unavailabl e Pcp, Unknown Primary Care Provider Unavailabl e Encounter Details Date Type Department Care Team (Late st Contact Info) Description 06/05/2023 Procedure Pass [facility], [address] [address] Social History Tobacco Use Types Packs/Day Years [...] 2:00 AM EDT Lisa Wise RN * [place] Suicide Severity Rating Scale (Screener/Recent Self-Report) Question [...] on filedocumented in this encounter Care Teams Cosmetic Sales Assistant Relationship Specialty Start Date End Date Pcp, Unknown PCP - General 05/27/22 12/22/24 Pcp, Unknown PCP - General 12/23/24 documented as of this encounter Additional Source Comments The information contained in this document represents components of the legal health record. It is not the complete legal health record.[facility]
--- OUTSIDE RECORDS SUMMARY | 2025-07-12 09:01 | XMS_ITS | Clinical Summary ---
Author Organization [facility] Address [address] [place] [address] Phone Care Team Providers Care Manager General Name Role Phone Pcp, Unknown Primary Care [...] (06/05/2023 5:56 AM EDT) HDL 31 mg/dL [facility] Comment: Interpretation <40 mg/dL: Low HDL cholesterol (major risk factor for CHD) Greater than or equal to 60 mg/dL: High HDL cholesterol ( negative risk factor for CHD) HDL - cholesterol is affected by a number of factors, e.g. smoking, excerise, hormones, sex and age. CHOLESTEROL 295(H) 0 - 240 mg/dL [facility] TRIGLYCERIDES 336(H) 30 - 160 mg/dL [facility] LDL 197(H) 50 - 129 mg/dL [facility] Comment: LDL levels in terms of risk for coronary heart disease: <100 mg/dL: Optimal 100-129 mg/dL: Near or above optimal 130-159 mg/dL: Borderline high 160-189 mg/dL: High >190 mg/dL: Very High CARDIAC RISK RATIO 9.5(H) 3.4 - 5.0 C [facility] Blood 06/05/2023 5:56 AM EDT 06/05/2023 6:50 AM EDT us Estuardo Hdez MD LAB BLOOD ORDERABLES Final Resu lt [address] [address] * TSH with reflex (06/04/2023 5:08 PM EDT) TSH 2.10 0.27 - 4.20 uIU/mL [facility] 06/04/2023 5:08 PM EDT 06/04/2023 5:18 PM EDT us Ching Cortez MD LAB BLOOD ORDERABLES Final R esult [address] [address] from Last 3 Months or Most Recently Relevant to Health Maintenance Insurance MEDICARE PART A & B [facility] ONE CARE MEDICARE REPLACEMENT MEDICARE PART A & B [facility] MEDICARE REPLACEMENT MEDICARE PART A & B [facility] MEDICARE REPLACEMENT MEDICARE PART A & B [facility] [place] [id number] MEDICARE PART A & B [facility] [place] [place] [id number] MEDICARE PART A & B [facility] ONE CARE MEDICARE REPLACEMENT Advance Directives For more information, please contact: [phone] (9AM - 5PM [facility], Wednesday-Wednesday) Documents on File Type Date Recorded Patient Physical Fitness Trainer Expl anation Healthcare Proxy 06/07/2023 2:26 PM * Full Code (Latest Code Status on File) Date Activated Date Inactivated Comments 06/05/2023 5:24 AM Question Answer Comments Code Status Confirmed With: Patient Code Status Communicated To: Inpatient Attending Care Teams Manager General Relationship Specialty Start Date End Date Pcp, Unknown PCP - General 12/23/24 Additional Source Comments The information contained in this document represents components of the legal health record. It is not the complete legal health record.[facility]
== END 2025-07-11 08:29 | disposition home or self-care (01) ==
LOC: HO.HOSX 08:28
PROVIDERS: Visit Provider Orthopaedic Surgery
DX: S83.241A Other tear of medial meniscus, current injury, right knee, initial encounter (principal); X58.XXXA Exposure to other specified factors, initial encounter; Z79.82 Long term (current) use of aspirin
CPT/HCPCS: 73562; 99202

== ENCOUNTER 2025-07-11 10:18 | Outpatient (AMB) | payer OTHER, SELFPAY ==
--- NOTE | 2025-07-11 10:25 | A.OFFVIS_ITS ---
Intake Visit Reasons: Right knee pain and giving way Intake Note: Dagoberto is a 60 year old male who presents with complaints of progressively worsening right knee pain and giving way. The patient describes his pain as sharp in nature. Most of the pain is along the medial aspect of his knee. His symptoms have gotten worse over the last 6 months in spite of continued non operative treatments. He has failed the last 6 weeks of conservative treatment which has included Tylenol, anti-inflammatory medicines and physical therapy exercises. Allergies morphine Adverse Reaction (Mild, Verified 07/11/25 10:33) Vomiting morphine Allergy (Mild, Uncoded 03/28/25 14:24) Vomiting Medication List - Last Reconciled 07/11/25 by Kyle Zuniga MD aspirin 1 tab PO DAILY atorvastatin 80 mg PO DAILY levothyroxine 125 mcg PO DAILY [facility] Medical History (Updated 07/11/25 @ 10:45 by Kyle Zuniga MD) Personal history of nicotine dependence Hypercholesteremia Hypothyroidism Deafness in right ear Tinnitus of left ear Dystrophic nail Eczema of both hands Lipoma of anterior chest wall Surgical History History of hand surgery H/O right inguinal hernia repair Family History Mother Diabetes Father Diabetes Alcoholism Sister Diabetes Other Substance use disorder Social History (Updated 07/11/25 @ 10:31 by Sheyla Sepulveda) Housing: House Alcohol intake: former Patient Tobacco Use Status: Former Tobacco user Tobacco use type: Cigarette e-Cigarette/Vaping Use: Never Used Second Hand Smoke Exposure: Yes service: No Current occupational status: retired and disabled Cognitive needs: No Hearing needs: No Vision needs: No Physical Exam Const Other: Well-nourished well-developed very friendly male awake alert and oriented x3 in no acute distress Extrem Other: Right knee examination shows a minimal effusion, minimal crepitus with range of motion, tenderness along his medial joint line, positive Yaakov's test, no instability Results Reviewed Results Reviewed: X-rays of the patient's right knee show mild diffuse joint space narrowing, no acute bony abnormalities Assessment & Plan Assessment & Plan (1) Tear of medial meniscus of right knee: Code(s): S83.241A - Other tear of medial meniscus, current injury, right knee, initial encounter Category: Medical Plan Mr. Sung presents with progressively worsening right knee pain and mechanical symptoms most likely due to a medial meniscus tear. Thus, I will send the patient for an MRI of his right knee for further evaluation. I will see him back once the MRI is completed to discuss the findings and treatment options. Feel free to call me at any time should questions regarding his orthopedic management arise. I spent 20 minutes in reviewing the patient's records and imaging studies, seeing the patient and documenting in the medical record. Orders: Orders XR knee RT 3V 07/11/25 M25.561 - Pain in right knee MR knee RT wo con Today S83.241A - Other tear of medial meniscus, current injury, right knee, initial encounter Coding Level of Care Code New Pt Level 3 (99837) Complex EM visit Add On G2211 Diagnoses Tear of medial meniscus of right knee S83.241A
--- OUTSIDE RECORDS SUMMARY | 2025-07-11 12:41 | XMS_ITS | Encounter Summary ---
Author Organization [facility] Address [address] [place] [phone] Phone Care Team Providers Care Immigration Guard Name Role Phone Pcp, Unknown Primary Care Provider Unavailabl e Pcp, Unknown Primary Care Provider Unavailabl e Encounter Details Date Type Department Care Team (Late st Contact Info) Description 06/05/2023 Procedure Pass [facility], [address] [address] Social History Tobacco Use Types Packs/Day Years [...] 2:00 AM EDT Lisa Wise RN * [place] Suicide Severity Rating Scale (Screener/Recent Self-Report) Question [...] on filedocumented in this encounter Care Teams Immigration Guard Relationship Specialty Start Date End Date Pcp, Unknown PCP - General 05/27/22 12/22/24 Pcp, Unknown PCP - General 12/23/24 documented as of this encounter Additional Source Comments The information contained in this document represents components of the legal health record. It is not the complete legal health record.[facility]
--- OUTSIDE RECORDS SUMMARY | 2025-07-11 12:41 | XMS_ITS | Clinical Summary ---
Author Organization [address] Address [address] [place] [phone] Phone Care Team Providers Care Implementation Project Coordinator Name Role Phone Unavailable Primary Care Provider [...] 09/26/2022 Social Influencers of Health Screening 09/26/2022 Depression Screening 10/18/2024 COVID-19 Vaccine (1 - 2023-2 5 season) 2025 Influenza Vaccine (#1) 2025 Colorectal Cancer Screening: [...] C Screening (06/30/2022) Hepatitis C Screening abstracted [facility] Provider HEALTH MAINTENANCE Final Result * (ABNORMAL) Lipid panel (02/09/2022) Pathologist [facility] LDL/HDL Ratio 6(A) 0 - 4 Triglycerides 235(A) 0 - 150 mg/dL Cholesterol 196 0 - 200 mg/dL HDL 33(A) >=40 mg/dL LDL Cholesterol 116(A) 0 - 100 mg/dL Blood Venous blood specimen / Unknown [facility] Provider LAB BLOOD ORDERABLES Fara l Result * Colonoscopy (11/11/2020) Colonoscopy abnormal, abstracted Anatomical Region Laterality Modality Other Historical Provider HEALTH MAINTENANCE Final Result from Last 3 Months or Most Recently Relevant to Health Maintenance Insurance * Guarantor: Dagoberto Sung Account Type Relation to Patient Date of Phone Billing Address Personal/Family Self [address] [place] [id number] [place] - [place]
--- OUTSIDE RECORDS SUMMARY | 2025-07-11 12:41 | XMS_ITS | Encounter Summary ---
Author Organization [facility] Address [address] [place] [phone] Phone Care Team Providers Care Animal Feeder Name Role Phone Pcp, Unknown Primary Care Provider Unavailabl e Pcp, Unknown Primary Care Provider Unavailabl e Encounter Details Date Type Department Care Team (Late st Contact Info) Description 06/04/2023 Procedure Pass [facility], Ct Scan - [address] [address] Social History Tobacco Use Types Packs/Day Years [...] 2:00 AM ELOT Lisa Wise RN * [place] Suicide Severity Rating Scale (Screener/Recent Self-Report) Question [...] on filedocumented in this encounter Care Teams Animal Feeder Relationship Specialty Start Date End Date Pcp, Unknown PCP - General 05/27/22 12/22/24 Pcp, Unknown PCP - General 12/23/24 documented as of this encounter Additional Source Comments The information contained in this document represents components of the legal health record. It is not the complete legal health record.[facility]
--- OUTSIDE RECORDS SUMMARY | 2025-07-11 12:41 | XMS_ITS | Clinical Summary ---
Author Organization [facility] Address [address] [place] [address] Phone Care Team Providers Care Tariff Compiling Clerk Name Role Phone Pcp, Unknown Primary Care [...] of 2) 2016 TSH LEVEL 06/04/2024 06/04/2023 INFLUENZA VACCINE (#1) 2025 COVID-19 VACCINE (1 - 2023-2 5 season) 2025 SCREENING FOR DIABETES 06/05/2026 , 06/05/2023 LIPID [...] (06/05/2023 5:56 AM EDT) HDL 31 mg/dL [facility] Comment: Interpretation <40 mg/dL: Low HDL cholesterol (major risk factor for CHD) Greater than or equal to 60 mg/dL: High HDL cholesterol ( negative risk factor for CHD) HDL - cholesterol is affected by a number of factors, e.g. smoking, excerise, hormones, sex and age. CHOLESTEROL 295(H) 0 - 240 mg/dL [facility] TRIGLYCERIDES 336(H) 30 - 160 mg/dL [facility] LDL 197(H) 50 - 129 mg/dL [facility] Comment: LDL levels in terms of risk for coronary heart disease: <100 mg/dL: Optimal 100-129 mg/dL: Near or above optimal 130-159 mg/dL: Borderline high 160-189 mg/dL: High >190 mg/dL: Very High CARDIAC RISK RATIO 9.5(H) 3.4 - 5.0 C [facility] Blood 06/05/2023 5:56 AM EDT 06/05/2023 6:50 AM EDT us Estuardo Hdez MD LAB BLOOD ORDERABLES Final Resu lt [address] [address] * TSH with reflex (06/04/2023 5:08 PM EDT) TSH 2.10 0.27 - 4.20 uIU/mL [facility] 06/04/2023 5:08 PM EDT 06/04/2023 5:18 PM EDT us Ching Cortez MD LAB BLOOD ORDERABLES Final R esult [address] [address] from Last 3 Months or Most Recently Relevant to Health Maintenance Insurance MEDICARE PART A & B [facility] ONE CARE MEDICARE REPLACEMENT MEDICARE PART A & B [facility] C[facility] MEDICARE REPLACEMENT MEDICARE PART A & B [facility] C[facility] MEDICARE REPLACEMENT MEDICARE PART A & B [facility] [place] [id number] MEDICARE PART A & B [facility] [place] [id number] MEDICARE PART A & B [facility] ONE CARE MEDICARE REPLACEMENT Advance Directives For more information, please contact: [phone] (9AM - 5PM [facility], Wednesday-Wednesday) Documents on File Type Date Recorded Patient Station Jailer Expl anation Healthcare Proxy 06/07/2023 2:26 PM * Full Code (Latest Code Status on File) Date Activated Date Inactivated Comments 06/05/2023 5:24 AM Question Answer Comments Code Status Confirmed With: Patient Code Status Communicated To: Inpatient Attending Care Teams Tariff Compiling Clerk Relationship Specialty Start Date End Date Pcp, Unknown PCP - General 12/23/24 Additional Source Comments The information contained in this document represents components of the legal health record. It is not the complete legal health record.[facility]
== END 2025-07-11 10:43 | disposition home or self-care (01) ==
LOC: HO.HOS 10:18
PROVIDERS: PCP Internal Medicine; Visit Provider Orthopaedic Surgery
DX: S83.241A Other tear of medial meniscus, current injury, right knee, initial encounter (principal)
CPT/HCPCS: 99203; G2211

== ENCOUNTER → 2025-07-11 10:22 | Outpatient (BNV) | payer OTHER, SELFPAY | PROVIDERS: Visit Provider Family Medicine | DX: M25.561 Pain in right knee (principal) | CPT/HCPCS: 73562 ==

== ENCOUNTER → 2025-08-19 09:06 | Outpatient (BNV) | payer OTHER, SELFPAY | PROVIDERS: Visit Provider Radiology Diagnostic Ultrasound | DX: S83.241A Other tear of medial meniscus, current injury, right knee, initial encounter (principal); M17.11 Unilateral primary osteoarthritis, right knee; M25.461 Effusion, right knee | CPT/HCPCS: 73721 ==

== ENCOUNTER 2025-08-19 09:11 | Outpatient (REF) | payer OTHER, SELFPAY ==
--- NOTE | ~2025-08-19 | MR_ITS ---
EXAMINATION: MR KNEE WITHOUT CONTRAST, RIGHT CLINICAL INFORMATION: Medial meniscal tear COMPARISON: None available. TECHNIQUE: MRI of the knee without contrast was performed using routine sequences on a high-field scanner. FINDINGS: MENISCI: Medial Meniscus: Posterior root high-grade/full-thickness tear. Intrasubstance degenerative signal in the posterior horn and body. Mild medial extrusion of the body. Lateral Meniscus: Small cystic foci adjacent to the anterior root/central anterior horn, concerning for para- meniscal cysts, possible underlying occult tear. Degenerative signal in the inner third of the body, with mild fraying. LIGAMENTS: Cruciate: Intact Collateral: Intact EXTENSOR MECHANISM: Intact ARTICULAR CARTILAGE/BONE: Patellofemoral Compartment: Mild-moderate arthritis, foci of nonuniform chondral thinning and irregularity. Medial Compartment: Osteochondral lesion in the weightbearing medial femoral condyle, with slight undulation/depression of the articular surface, subchondral cysts and edema. At the articular surface this measures 1.1 x 1 cm. This could be degenerative in nature. No loose unstable osteochondral fragment seen. There is areas of chondral heterogeneity and thinning otherwise present. Lateral Compartment: No significant chondral loss JOINT FLUID AND BURSAE: Moderate effusion. Trace Sandoval's cyst. Subcutaneous edema. Cyst. MR/MR knee RT wo con IMPRESSION: * High-grade/full-thickness tear of the posterior root of the medial meniscus. Degeneration in the posterior horn and body. * Para -meniscal cysts associated with the anterior root/central anterior horn, raising the possibility of underlying occult meniscal tear. Degenerative fraying in the body. * Medial femoral condyle osteochondral lesion measuring 1.1 x 1 cm. This may be degenerative in nature. No loose unstable osteochondral fragments is seen. Overall mild-moderate medial compartment arthritis. * Mild-moderate patellofemoral arthritis. *Moderate effusion. Trace Sandoval's cyst. Electronically signed by: Sg Payne MD 08/20/2025 01:29 PM EST
--- OUTSIDE RECORDS SUMMARY | 2025-08-19 09:14 | XMS_ITS | Clinical Summary ---
Author Organization [facility] Address [address] [place] [address] Phone Care Team Providers Care Neighborhood Aide Name Role Phone Pcp, Unknown Primary Care [...] VACCINE (#1) 2025 COVID-19 VACCINE (1 - 2024-2 6 season) 2025 SCREENING FOR DIABETES 06/05/2026 , 06/05/2023 LIPID PANEL 06/05/2028 06/05/2023, 02/09/2022 RSV VACCINE (1 - 1-dose 75+ series) 2041 HEPATITIS A VACCINES Aged Out No long [...] (06/05/2023 5:56 AM EDT) HDL 31 mg/dL [facility] Comment: Interpretation <40 mg/dL: Low HDL cholesterol (major risk factor for CHD) Greater than or equal to 60 mg/dL: High HDL cholesterol ( negative risk factor for CHD) HDL - cholesterol is affected by a number of factors, e.g. smoking, excerise, hormones, sex and age. CHOLESTEROL 295(H) 0 - 240 mg/dL [facility] TRIGLYCERIDES 336(H) 30 - 160 mg/dL [facility] LDL 197(H) 50 - 129 mg/dL [facility] Comment: LDL levels in terms of risk for coronary heart disease: <100 mg/dL: Optimal 100-129 mg/dL: Near or above optimal 130-159 mg/dL: Borderline high 160-189 mg/dL: High >190 mg/dL: Very High CARDIAC RISK RATIO 9.5(H) 3.4 - 5.0 [facility] Blood 06/05/2023 5:56 AM EDT 06/05/2023 6:50 AM EDT us Estuardo Hdez MD LAB BLOOD BKR ORDERABLES Final Result [address] [address] * TSH with reflex (06/04/2023 5:08 PM EDT) TSH 2.10 0.27 - 4.20 uIU/mL [facility] 06/04/2023 5:08 PM EDT 06/04/2023 5:18 PM EDT us Ching Cortez MD LAB BLOOD BKR ORDERABLES Fin al Result [facility] [address] [place] [address] from Last 3 Months or Most Recently Relevant to Health Maintenance Insurance MEDICARE PART A & B [facility] C[facility] MEDICARE REPLACEMENT MEDICARE PART A & B [facility] C[facility] MEDICARE REPLACEMENT MEDICARE PART A & B [facility] MEDICARE REPLACEMENT MEDICARE PART A & B ONE CARE MEDICARE REPLACEMENT MEDICARE PART A & B CARE MEDICARE REPLACEMENT MEDICARE PART A & B [facility] CARE MEDICARE REPLACEMENT Advance Directives For more information, please contact: [phone] (9AM - 5PM [facility], Wednesday-Wednesday) Documents on File Type Date Recorded Patient Business Initiatives Manager Expl anation Healthcare Proxy 06/07/2023 2:26 PM * Full Code (Latest Code Status on File) Date Activated Date Inactivated Comments 06/05/2023 5:24 AM Question Answer Comments Code Status Confirmed With: Patient Code Status Communicated To: Inpatient Attending Care Teams Neighborhood Aide Relationship Specialty Start Date End Date Pcp, Unknown PCP - General 12/23/24 Additional Source Comments The information contained in this document represents components of the legal health record. It is not the complete legal health record.[facility]
--- OUTSIDE RECORDS SUMMARY | 2025-08-19 09:14 | XMS_ITS | Data Portability ---
Author Organization [place] - [facility], Allergy Address [address] [place] [phone] Care Team Providers Care Prosthetist Name Role Phone [facility] Primary Care Provider [phone] Assessment Encounter Date Assessment Date Assessment LastModified by Organization Details LastModified Time 10/05/2024 10/05/2024 59 year old male with a known right profound sensorineural hearing loss since childhood, presents today with 18 months of left sided tinnitus. Audiogram demonstrates a mild to severe sensorineural hearing loss in the left ear with excellent word understanding. Audiogram was reviewed with the patient. The connection between hearing loss and tinnitus was discussed. The patient is a candidate for left sided amplification, and we discussed how this should help lessen the tinnitus. The patient is interested in proceeding. He was provided with a copy of today's audiogram and contact information for [facility] to find a hearing aid provider covered by their insurance. Masking strategies to help avoid awareness of tinnitus were discussed, as well as exacerbating factors such as stress, lack of sleep, caffeine and salt intake. For tinnitus that is significantly affecting quality of life; tinnitus retraining therapy or cognitive behavioral therapy can be helpful. [email or web address] Not available 10/05/2024 14:53:34 06/29/2025 06/29/2025 60 year old male with a known right profound sensorineural hearing loss since childhood, presents today for persistent left sided tinnitus. He has obtained a left-sided hearing aid. Ear exam is normal. I reviewed his most recent audiogram from [place]. I reviewed his MRI from 2022. Masking strategies to help avoid awareness of tinnitus were discussed, as well as exacerbating factors such as stress, lack of sleep, caffeine and salt intake. For tinnitus that is significantly affecting quality of life; tinnitus retraining therapy or cognitive behavioral therapy can be helpful. [email or web address] Not available 06/30/2025 14:08:46 Plan of Treatment Reminders Order Date Submit Date Provider Last Modified By Organization Details Last Modified Time Details Appointments None record ed. Lab None record ed. Referral None record ed. Procedures None record ed. Surgeries None record ed. Imaging None record ed. Medication Orders None record ed. Patient TargetsNo targets recorded. Patient InstructionsNo instructions recorded. Reason for Referral None Reported. Results Created Date Observation Date Name Description Value Unit Range Abnormal Flag Note LastModifiedBy Organization Detail LastModifiedTime 10/05/20 24 audio gram No observ ation record ed. BARCODE Not Available 2023 16:40:19 06/29/20 25 11/09/2024 audio gram No observ ation record ed. [email or web address] Not Available 06/18 10:38:55 Result Notes None recorded. Problems Name Problem SNOMED Code Status Onset Date Resolution Date Notes Provider Name and Address Organization Details Recorded Time Sensorineur al hearing loss of bilateral ears 393294235 Active 2023 DAYANA DE SANTIAGO, [address],[place] [address], [place], [phone], [facility] 4 13:51:45 Tinnitus of left ear 1155729190420 Active 2023 DAYANA DE SANTIAGO, [address],[place] [address], [place], [phone], [facility] 4 13:51:55 Problem Notes None recorded. Procedures Surgical History Date Name Laterality Status Provider Name and Address Organization Details Recorded Time 10/05/2024 Comp Audio with Tymps - 38649 & 85542 completed DAYNAA DE SANTIAGO, [facility] [address] [facility],[address], [phone], [facility] 10/05/2024 13:51:37 Imaging Results None recorded. Procedure Notes None recorded. Medical Equipment None Reported. Allergies No known drug allergies Medications Name Sig Start Date Stop Date Status Note LastModified by Organization Details LastModified Time atorvastati n 80 mg tablet TAKE 1 TABLET BY MOUTH EVERY DAY 06/29 completed Not Available Not Available Not Available doxycycline monohydrate 100 mg capsule TAKE 1 CAPSULE BY MOUTH TWICE A DAY FOR 10 DAYS 06/29 completed Not Available Not Available Not Available tacrolimus 0.1 % topical ointment APPLY TO HANDS TWICE DAILY, ALTERNATI NG WITH TOPICAL STEROID 06/29 completed Not Available Not Available Not Available levothyroxi ne 125 mcg tablet TAKE 1 TABLET (125 MCG) ORALLY DAILY active Not Available Not Available No t Available aspirin 81 mg chewable tablet TAKE 1 TABLET BY MOUTH EVERY DAY active Not Available Not Available No t Available hydrocortis one 2.5 % topical cream APPLY TO AFFECTED AREA TWICE A DAY NEEDED FOR SKIN IRRITATIO N 06/29 completed Not Available Not Available Not Available clobetasol 0.05 % topical ointment APPLY TO HANDS TWICE DAILY NEEDED. DECREASE TO ONCE DAILY TO EVERY OTHER DAY SYMPTOMS IMPROVE 06/29 completed Not Available Not Available Not Available Vitals Date Recorded Body height Body mass index (BMI) Body weight Provider Name and Address Organization Details Last Updated DateTime 06/29/2025 165.1 cm 27.5 kg/m2 40666.74 g Oliva Sandoval [place] - [facility] 06/29/2025 10:27:50 Social History None recorded. Functional Status None recorded. Mental Status None recorded. Family History Nothing Reported. Medical History No medical history recorded. Past Encounters Encounter ID Performer Location Encounter Start Date Encounter Closed Date Diagnosis/Indication Diagnosis SNOMED-CT Code Diagnosis ICD10 Code Diagnosis IMO Codes Diagnosis Note [id number] ANASTASIYA HERRERA PA-C [facility] on [address] [place] [phone] 10/05/2024 13:27:51 10/05/2024 14:56:43 Sensorineural hearing loss of bilateral ears 305111568 H90.3 Tinnitus of left ear 175 7767893 106 H93.12 Right Ear:Profou nd SNHL with no speech discrimina tion.Type A tympanogra m.Left Ear:Mild to severe SNHL with excellent speech discrimina tion.Type A tympanogra m. [id number] KAVON VASQUEZ MD [facility] on [address] [place] [phone] 06/29/2025 10:17:03 06/29/2025 10:39:15 Sensorineural hearing loss of bilateral ears 641679953 H90.3 Tinnitus of left ear 152 4494517 106 H93.12 Health Concerns Section Related Observation LastModified by Organization Detai ls LastModified Time None Recorded Concern Status LastModified by Organization Details LastModified Time None Recorded Advance Directives Directive None Recorded Payers Insurance Date Sequence Insurance Name Policy Number Policy Turner Covered Member ID Turner Member ID Guarantor Name 06/29/2025 1 [facility] - DOS ON OR AFTER 2023 - MEDICARE [place]VANTAGE [place] (MEDICARE REPLACEMENT/ADV ANTAGE - PPO) Dagoberto Sung [id number] Dagoberto Sung 06/11/2025 1 [employer] (MEDICARE REPLACEMENT/ADV ANTAGE - PPO) Dagoberto Sung [id number] Dagoberto Sung Notes Date Note Type Note Provider Name and Address Organization Details Recorded Time 4 text/html ROS as noted in the HPI 59 year old male with a history of a profound right sided hearing loss since the age of 5 or 6. He is here today for evaluation of left sided tinnitus. The tinnitus started about 18 months ago. He reports an episode of dysequilibrium at the time that occurred while he was working in his yard. He was hospitalized for two days, reports they never really had a diagnosis. Around that time he felt the tinnitus started, but he does not think that he had any hearing loss at that time.Reports he has been around loud noises all of his life. 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 Anastasiya thibodeaux [place] - [facility] 10/05/2024 14:53:48 5 text/html ROS as noted in the HPI 60 yo M with a longstanding history of tinnitus Wears a hearing aid, no significant improvementInitially had some dysequilibriumdoes not use a lot of salt3-4 cups of coffee per day MRI brain wo contrast cdh 05/2023 no mass PV: 59 year old male with a history of a profound right sided hearing loss since the age of 5 or 6. He is here today for evaluation of left sided tinnitus. The tinnitus started about 18 months ago. He reports an episode of dysequilibrium at the time that occurred while he was working in his yard. He was hospitalized for two days, reports they never really had a diagnosis. Around that time he felt the tinnitus started, but he does not think that he had any hearing loss at that time.Reports he has been around loud noises all of his life. 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 KAVON VASQUEZ MD [address] [place] [address], [place], [phone], [facility] - [facility] 06/30/2025 14:08:56
--- OUTSIDE RECORDS SUMMARY | 2025-08-19 09:14 | XMS_ITS | Encounter Summary ---
Author Organization [facility] Address [address] [place] [address] Phone Care Team Providers Care Us Administrative Law Judge Name Role Phone Pcp, Unknown Primary Care Provider Unavailabl e Pcp, Unknown Primary Care Provider Unavailabl e Encounter Details Date Type Department Care Team (Late st Contact Info) Description 06/04/2023 Procedure Pass [facility], Ct Scan - [address] [address] Social History Tobacco Use Types Packs/Day Years [...] 2:00 AM ELOT Lisa Wise RN * [place] Suicide Severity Rating Scale (Screener/Recent Self-Report) Question [...] on filedocumented in this encounter Care Teams Us Administrative Law Judge Relationship Specialty Start Date End Date Pcp, Unknown PCP - General 05/27/22 12/22/24 Pcp, Unknown PCP - General 12/23/24 documented as of this encounter Additional Source Comments The information contained in this document represents components of the legal health record. It is not the complete legal health record.[facility]
--- OUTSIDE RECORDS SUMMARY | 2025-08-19 09:14 | XMS_ITS | Encounter Summary ---
Author Organization [facility] Address [address] [place] [address] Phone Care Team Providers Care Vessel Ordinary Seaman Name Role Phone Pcp, Unknown Primary Care Provider Unavailabl e Pcp, Unknown Primary Care Provider Unavailabl e Encounter Details Date Type Department Care Team (Late st Contact Info) Description 06/05/2023 Procedure Pass [facility], [address] [address] Social History Tobacco Use Types Packs/Day Years [...] 2:00 AM EDT Lisa Wise RN * [place] Suicide Severity Rating Scale (Screener/Recent Self-Report) Question [...] on filedocumented in this encounter Care Teams Vessel Ordinary Seaman Relationship Specialty Start Date End Date Pcp, Unknown PCP - General 05/27/22 12/22/24 Pcp, Unknown PCP - General 12/23/24 documented as of this encounter Additional Source Comments The information contained in this document represents components of the legal health record. It is not the complete legal health record.[facility]
== END 2025-08-19 09:12 | disposition home or self-care (01) ==
LOC: HO.MRI 09:11
PROVIDERS: Visit Provider Orthopaedic Surgery
DX: S83.241D Other tear of medial meniscus, current injury, right knee, subsequent encounter (principal)
CPT/HCPCS: 73721

== ENCOUNTER 2025-09-11 09:36 | Outpatient (AMB) | payer OTHER, SELFPAY ==
--- NOTE | 2025-09-11 09:38 | A.OFFVIS_ITS ---
Vital Signs 09/11/25 09:42 Height 5 ft 5 in Weight 167 lb BMI 27.8 Intake Visit Reasons: Right knee pain and giving way Intake Note: Dagoberto is a 60 year old male who presents with complaints of progressively worsening right knee pain and giving way. The patient describes his pain as sharp in nature. Most of the pain is along the medial aspect of his knee. His symptoms have gotten worse over the last 6 months in spite of continued non operative treatments. He has failed the last 6 weeks of conservative treatment which has included Tylenol, anti-inflammatory medicines and physical therapy exercises. Allergies morphine Adverse Reaction (Mild, Verified 09/11/25 09:40) Vomiting morphine Allergy (Mild, Uncoded 09/11/25 09:40) Vomiting Medication List - Last Reconciled 09/11/25 by Kyle Zuniga MD aspirin 1 tab PO DAILY atorvastatin 80 mg PO DAILY levothyroxine 125 mcg PO DAILY [facility] Medical History Personal history of nicotine dependence Hypercholesteremia Hypothyroidism Deafness in right ear Tinnitus of left ear Dystrophic nail Eczema of both hands Lipoma of anterior chest wall Surgical History History of colonoscopy (~11/11/20) History of hand surgery H/O right inguinal hernia repair Family History Mother Diabetes Father Diabetes Alcoholism Sister Diabetes Other Substance use disorder Social History Housing: House Alcohol intake: former Patient Tobacco Use Status: Former Tobacco user Tobacco use type: Cigarette e-Cigarette/Vaping Use: Never Used Second Hand Smoke Exposure: Yes service: No Current occupational status: retired and disabled Cognitive needs: No Hearing needs: No Vision needs: No Physical Exam Vital Signs: BMI result Body Mass Index 27.8 Extrem Other: Right knee examination shows a minimal effusion, mild crepitus with range of motion, tenderness along his medial joint line, positive Yaakov's test, no instability Results Reviewed Results Reviewed: X-rays of the patient's right knee taken previously show mild diffuse joint space narrowing, no acute bony abnormalities MRI of the patient's right knee shows mild diffuse degenerative changes as well as a tear of the medial meniscus Assessment & Plan Assessment & Plan (1) Tear of medial meniscus of right knee: Code(s): S83.241A - Other tear of medial meniscus, current injury, right knee, initial encounter Category: Medical Plan Mr. Sung presents with right knee pain and mechanical symptoms due to a medial meniscus tear. I had a lengthy discussion with the patient regarding the treatment options. At this point the patient has failed continued non operative treatments. The risks and benefits of right knee arthroscopic surgery were discussed at length with the patient. The patient wishes to proceed with surgery. Surgery will involve right knee arthroscopic partial medial meniscectomy. The patient does understand that he may not get 100% relief of his symptoms depending on the severity of his degenerative changes. He will be scheduled for next available date. He will follow up as instructed. Feel free to call me at any time should questions regarding his orthopedic management arise. I spent 22 minutes in reviewing the patient's records and imaging studies, seeing the patient and documenting in the medical record. Coding Level of Care Code Est Pt Level 3 (30634) Complex visit Add On G2211 Diagnoses Tear of medial meniscus of right knee S83.241A
[2025-09-11 09:42] VITALS: BMI 27.8
--- OUTSIDE RECORDS SUMMARY | 2025-09-11 11:08 | XMS_ITS | Encounter Summary ---
Author Organization [facility] Address [address] [place] [address] Phone Care Team Providers Care Cell Support Operator Name Role Phone Pcp, Unknown Primary Care Provider Unavailabl e Pcp, Unknown Primary Care Provider Unavailabl e Encounter Details Date Type Department Care Team (Late st Contact Info) Description 06/05/2023 Procedure Pass [facility], [address] [address] Social History Tobacco Use Types Packs/Day Years [...] 2:00 AM EDT Lisa Wise RN * [place] Suicide Severity Rating Scale (Screener/Recent Self-Report) Question Answer Date of Assessment Author 1. Wish to be (Past 1 Month) No 06/05/2023 2:00 AM EDT Lisa Wies RN 2. Non-Specific Active Suicidal Thoughts (Past 1 Month) No 06/05/2023 2:00 AM EDT Lisa Wise RN 6. Suicidal Behavior (Lifetime) No 06/05/2023 2:00 AM EDT Lisa Wise RN documented as of this encounter Plan of Treatment Not on file documented as of this encounter Visit Diagnoses Not on filedocumented in this encounter Care Teams Cell Support Operator Relationship Specialty Start Date End Date Pcp, Unknown PCP - General 05/27/22 12/22/24 Pcp, Unknown PCP - General 12/23/24 documented as of this encounter Additional Source Comments The information contained in this document represents components of the legal health record. It is not the complete legal health record.[facility]
--- OUTSIDE RECORDS SUMMARY | 2025-09-11 11:08 | XMS_ITS | Clinical Summary ---
Author Organization [address] Address [address] [place] [phone] Phone Care Team Providers Care Cytopathologist Name Role Phone Unavailable Primary Care Provider [...] 06/30/2022 Hand injury, right, sequela 09/06/2020 Immunizations Immunization Administration Dates Next Due Tdap Tetanus diptheria [...] Years Used Date Smoking Tobacco: Former Cigarettes 0.5 Q uit: 10/18/2022 Smokeless Tobacco: Never Tobacco [...] Screening 09/26/2022 Depression Screening 10/18/2024 COVID-19 Vaccine ( - 2024-2 6 season) 2025 Influenza Vaccine (#1) 2025 Colorectal [...] C Screening (06/30/2022) Hepatitis C Screening abstracted [facility] Provider HEALTH MAINTENANCE Final Result * (ABNORMAL) [...] Relevant to Health Maintenance Insurance MEDICAID - [place]
--- OUTSIDE RECORDS SUMMARY | 2025-09-11 11:08 | XMS_ITS | Clinical Summary ---
Author Organization [facility] Address [address] [place] [address] Phone Care Team Providers Care Agricultural Equipment Sales Manager Name Role Phone Pcp, Unknown Primary Care [...] (06/05/2023 5:56 AM EDT) HDL 31 mg/dL [facility] Comment: Interpretation <40 mg/dL: Low HDL cholesterol (major risk factor for CHD) Greater than or equal to 60 mg/dL: High HDL cholesterol ( negative risk factor for CHD) HDL - cholesterol is affected by a number of factors, e.g. smoking, excerise, hormones, sex and age. CHOLESTEROL 295(H) 0 - 240 mg/dL [facility] TRIGLYCERIDES 336(H) 30 - 160 mg/dL [facility] LDL 197(H) 50 - 129 mg/dL [facility] Comment: LDL levels in terms of risk for coronary heart disease: <100 mg/dL: Optimal 100-129 mg/dL: Near or above optimal 130-159 mg/dL: Borderline high 160-189 mg/dL: High >190 mg/dL: Very High CARDIAC RISK RATIO 9.5(H) 3.4 - 5.0 [facility] Blood 06/05/2023 5:56 AM EDT 06/05/2023 6:50 AM EDT us Estuardo Hdez MD LAB BLOOD BKR ORDERABLES Final Result [address] [address] * TSH with reflex (06/04/2023 5:08 PM EDT) TSH 2.10 0.27 - 4.20 uIU/mL [facility] 06/04/2023 5:08 PM EDT 06/04/2023 5:18 PM EDT us Ching Cortez MD LAB BLOOD BKR ORDERABLES Fin al Result [facility] [address] [place] [address] from Last 3 Months or Most Recently Relevant to Health Maintenance Insurance MEDICARE PART A & B [facility] CARE MEDICARE REPLACEMENT MEDICARE PART A & B [facility] MEDICARE REPLACEMENT MEDICARE PART A & B [facility] CARE MEDICARE REPLACEMENT MEDICARE PART A & B ONE CARE MEDICARE REPLACEMENT MEDICARE PART A & B CARE MEDICARE REPLACEMENT MEDICARE PART A & B [facility] MEDICARE REPLACEMENT Advance Directives For more information, please contact: [phone] (9AM - 5PM [facility], Wednesday-Wednesday) Documents on File Type Date Recorded Patient Custodial Supervisor Expl anation Healthcare Proxy 06/07/2023 2:26 PM * Full Code (Latest Code Status on File) Date Activated Date Inactivated Comments 06/05/2023 5:24 AM Question Answer Comments Code Status Confirmed With: Patient Code Status Communicated To: Inpatient Attending Care Teams Agricultural Equipment Sales Manager Relationship Specialty Start Date End Date Pcp, Unknown PCP - General 12/23/24 Additional Source Comments The information contained in this document represents components of the legal health record. It is not the complete legal health record.[facility]
--- OUTSIDE RECORDS SUMMARY | 2025-09-11 11:08 | XMS_ITS | Encounter Summary ---
Author Organization [facility] Address [address] [place] [address] Phone Care Team Providers Care Dump Grounds Checker Name Role Phone Pcp, Unknown Primary Care Provider Unavailabl e Pcp, Unknown Primary Care Provider Unavailabl e Encounter Details Date Type Department Care Team (Late st Contact Info) Description 06/04/2023 Procedure Pass [facility], Ct Scan - [address] [address] Social History Tobacco Use Types Packs/Day Years [...] 2:00 AM ELOT Lisa Wise RN * [place] Suicide Severity Rating Scale (Screener/Recent Self-Report) Question [...] on filedocumented in this encounter Care Teams Dump Grounds Checker Relationship Specialty Start Date End Date Pcp, Unknown PCP - General 05/27/22 12/22/24 Pcp, Unknown PCP - General 12/23/24 documented as of this encounter Additional Source Comments The information contained in this document represents components of the legal health record. It is not the complete legal health record.[facility]
== END 2025-09-11 09:50 | disposition home or self-care (01) ==
LOC: HO.HOS 09:36
PROVIDERS: Visit Provider Orthopaedic Surgery
DX: S83.241A Other tear of medial meniscus, current injury, right knee, initial encounter (principal)
CPT/HCPCS: 99213; G2211

== ENCOUNTER → 2025-09-11 09:36 | Outpatient (BNVA) | payer OTHER, SELFPAY | PROVIDERS: Visit Provider Orthopaedic Surgery | DX: S83.241A Other tear of medial meniscus, current injury, right knee, initial encounter (principal) | CPT/HCPCS: 99212 ==

== ENCOUNTER → 2025-09-25 10:26 | Outpatient (BNV) | payer OTHER, SELFPAY | PROVIDERS: Visit Provider Internal Medicine Cardiovascular Disease | DX: R00.1 Bradycardia, unspecified (principal) | CPT/HCPCS: 93010 ==

== ENCOUNTER 2025-09-26 13:12 | Outpatient (AMB) | payer OTHER, SELFPAY ==
--- NOTE | 2025-09-26 13:17 | A.OFFPC_ITS ---
Vital Signs 09/26/25 13:20 Height 5 ft 5 in Weight 172 lb 2 oz BMI 28.6 BP 140/80 H Blood Pressure Location Lt brachial Position Sitting Pulse 79 Pulse Source Pulse Oximeter Temp 97.3 F Temp Source Temporal Artery Scan Pulse Oximetry (%) 98 Oxygen Delivery Method Room Air Intake Visit Reasons: Right Knee Arthroscopy on 10/19/[address] Zuniga Intake Note: Patient is here for a Pre-op for Right knee Arthroscope scheduled with Dr Zuniga on 10/19/25. 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 Required: No Mobile Application Engineer: Not Required per policy Accompanied by: Self / Same As Patient Allergies morphine Allergy (Mild, Uncoded 09/26/25 13:20) Vomiting Tobacco use date assessed: 09/26/25 Dental Screening Dental Screen Date: 03/28/25 [facility] Medical History (Updated 09/25/25 @ 09:39 by Joanna Benton RN) Arthritis Back pain Habitual snoring Wheezing Personal history of nicotine dependence Hypercholesteremia Hypothyroidism Deafness in right ear Tinnitus of left ear Dystrophic nail Eczema of both hands Lipoma of anterior chest wall Surgical History History of colonoscopy (~11/11/20) History of hand surgery H/O right inguinal hernia repair Family History Mother Diabetes Father Diabetes Alcoholism Sister Diabetes Other Substance use disorder Social History Housing: House Are you a primary residential child care counselor to a significant other at home: No Do you presently have visiting nurse or other home services: No Alcohol intake: former Patient Tobacco Use Status: Former Tobacco user Tobacco use type: Cigarette e-Cigarette/Vaping Use: Never Used Second Hand Smoke Exposure: Yes service: No Current occupational status: retired and disabled Cognitive needs: No Hearing needs: No Vision needs: No Questionnaire Thrive Questionnaire Date Thrive assessed: 03/28/25 I am a: Patient What is your living situation today?: I have a steady place to live Within the past 12 months, did the food you bought not last and you didn't have the money to get more?: Never true Within the past 12 months, did you worry whether your food would run out before you got money to buy more?: I choose not to answer this question Do you have trouble paying for medicines?: I choose not to answer this question Do you have trouble getting transportation to medical appointments?: I choose not to answer this question Do you have trouble paying your heating and electricity bill?: I choose not to answer this question Do you have trouble taking care of your child, family member or friend?: I choose not to answer this question Do you have trouble with day-to-day activities such as bathing, preparing meals, shopping, managing finances, etc.?: I choose not to answer this question Are you currently unemployed and looking for a job?: I choose not to answer this question Are you interested in more education?: I choose not to answer this question Please select the resources that you would like help with: None Currently or been in a relationship where the following occur: No concerns reported THRIVE Score: 0 AUDIT C Alcohol Use Questionnaire (AUDIT-C) 3. How often do you have six or more drinks on one occasion?: Never Total Score: 0 JONATHAN-7 AMB Questionnaire JONATHAN-7 Date JONATHAN - 7 assessed: 03/28/25 Source: Developed by Drs. Ilya Waldrop, Jeni Ji, Jose Blair and colleagues, with an educational liam from [employer]. Physical exam (Primary Care) Vital Signs: Last Vital Signs Temp 97.3 F 09/26/25 13:20 Pulse 79 09/26/25 13:20 BP 140/80 H 09/26/25 13:20 Pulse Ox 98 09/26/25 13:20 Oxygen Delivery Method Room Air 09/26/25 13:20 BMI result Body Mass Index 28.6 Tobacco/Smoking Status: Tobacco use Status Tobacco use date assessed 09/26/25 09/26/25 13:22 Patient Tobacco Use Status Former Tobacco user 09/26/25 13:22 Tobacco use type Cigarette 09/26/25 13:22 e-Cigarette/Vaping Use Never Used 09/26/25 13:22 Thrive Assessment: Date of Thrive Assessment Date Thrive assessed 03/28/25 09/26/25 13:22 Currently or been in a relationship where the following occur: No concerns reported Coding Level of Care Code Est Pt Level 4 (62754) Add On Problem Visit Only Diagnoses Preoperative clearance Z01.818 Assessment & Plan Assessment & Plan (1) Preoperative clearance: Code(s): Z01.818 - Encounter for other preprocedural examination Plan: History of Present Illness - The patient is a 60 year old male presenting for preoperative clearance for a right knee surgery. 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 - The injury involves a torn structure under the knee, causing recurrent fluid accumulation. - He is scheduled for surgery on his right knee on October 19, which will be performed under general anesthesia. - He has a past history of a hand injury from an industrial table saw accident, which resulted in a loss of sensation in his fingers and occasional difficulty holding objects. - He quit smoking over two years ago. - The patient declines the flu shot. - His current medications include aspirin, a statin, and levothyroxine. - He confirms he has had a colonoscopy performed. - He recently refilled his prescriptions and is not in need of any refills at this time. Social History - Tobacco Use: The patient is a former smoker, having quit over two years ago. 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 Review of Systems - Musculoskeletal: Reports right knee injury with effusion. - Neurological: Reports decreased sensation in fingers of one hand and occasionally drops items. Physical Exam General: Appearance normal, both eyes and all related structures Nutritional Appearance: Well nourished Orientation/consciousness: Patient oriented x3 Limitations: No feeling in the fingers of the hand due to an old industrial accident Head: Normal to inspection Neck: Normal visual inspection Chest: Normal palpation of entire chest wall Respiratory: Normal respiratory effort Neurology: Patient oriented x3 Results - Labs: Blood work from September 25 showed normal hemoglobin and platelets. - Chemistry panel was normal. - EKG: Normal. Plan - Based on normal blood work and EKG, the patient is cleared for his upcoming right knee surgery. - The surgical clearance will be sent over before the surgery date of October 19. - The patient declined the influenza vaccine. - No prescription refills are needed at this time. Discussion Notes I reviewed the patient's recent blood work from September 25 and his EKG results. I informed him that all results, including hemoglobin, platelets, chemistry panel, and the cardiogram, are normal. Based on these findings, I communicated that there are no medical contraindications for him to proceed with his scheduled right knee surgery on October 19, and I will provide surgical clearance. We discussed that he quit smoking over two years ago and that he declines the flu shot. I also confirmed he is not currently in need of prescription refills. Patient Instructions - Your recent blood tests and EKG are normal. - You are medically cleared to have your right knee surgery as planned. - The necessary paperwork for your surgical clearance will be sent to the surgeon before your operation on October 19. - No medication refills are needed at this time as you recently filled them.
[2025-09-26 13:20] VITALS: BP 140/80; PULSE 79; TEMP 36.3; O2SAT 98; BMI 28.6
== END 2025-09-26 14:58 | disposition home or self-care (01) ==
LOC: HO.HMCH 13:13
PROVIDERS: PCP Internal Medicine; Visit Provider Internal Medicine
DX: Z01.818 Encounter for other preprocedural examination (principal)

== ENCOUNTER → 2025-09-26 13:12 | Outpatient (BNVA) | payer OTHER, SELFPAY | PROVIDERS: PCP Internal Medicine; Visit Provider Internal Medicine | DX: Z01.818 Encounter for other preprocedural examination (principal) | CPT/HCPCS: 99212 ==

== ENCOUNTER 2025-10-10 09:49 | Outpatient (AMB) | payer OTHER, SELFPAY ==
--- OUTSIDE RECORDS SUMMARY | 2025-10-10 09:56 | XMS_ITS | Clinical Summary ---
Author Organization [facility] Address [address] [place] [address] Phone Care Team Providers Care Supervisor Fabrication And Assembly Name Role Phone Pcp, Unknown Primary Care [...] (06/05/2023 5:56 AM EDT) HDL 31 mg/dL [facility] Comment: Interpretation <40 mg/dL: Low HDL cholesterol (major risk factor for CHD) Greater than or equal to 60 mg/dL: High HDL cholesterol ( negative risk factor for CHD) HDL - cholesterol is affected by a number of factors, e.g. smoking, excerise, hormones, sex and age. CHOLESTEROL 295(H) 0 - 240 mg/dL [facility] TRIGLYCERIDES 336(H) 30 - 160 mg/dL [facility] LDL 197(H) 50 - 129 mg/dL [facility] Comment: LDL levels in terms of risk for coronary heart disease: <100 mg/dL: Optimal 100-129 mg/dL: Near or above optimal 130-159 mg/dL: Borderline high 160-189 mg/dL: High >190 mg/dL: Very High CARDIAC RISK RATIO 9.5(H) 3.4 - 5.0 [facility] Blood 06/05/2023 5:56 AM EDT 06/05/2023 6:50 AM EDT us Estuardo Hdez MD LAB BLOOD BKR ORDERABLES Final Result [address] [address] * TSH with reflex (06/04/2023 5:08 PM EDT) TSH 2.10 0.27 - 4.20 uIU/mL [facility] 06/04/2023 5:08 PM EDT 06/04/2023 5:18 PM EDT us Ching Cortez MD LAB BLOOD BKR ORDERABLES Fin al Result [facility] [address] [place] [address] from Last 3 Months or Most Recently Relevant to Health Maintenance Insurance MEDICARE PART A & B [facility] ONE CARE MEDICARE REPLACEMENT MEDICARE PART A & B [facility] ONE CARE MEDICARE REPLACEMENT MEDICARE PART A & B [facility] C[facility] MEDICARE REPLACEMENT MEDICARE PART A & B ONE CARE MEDICARE REPLACEMENT MEDICARE PART A & B CARE MEDICARE REPLACEMENT MEDICARE PART A & B [facility] ONE CARE MEDICARE REPLACEMENT Advance Directives For more information, please contact: [phone] (9AM - 5PM 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 It is not the complete legal health record.[facility]
--- OUTSIDE RECORDS SUMMARY | 2025-10-10 09:56 | XMS_ITS | Clinical Summary ---
Author Organization [address] Address [address] [place] [phone] Phone Care Team Providers Care Investigative Assistant Name Role Phone Unavailable Primary Care Provider [...] on file Sexual Orientation Not on file Last Filed Vital Signs Vital Sign Reading [...] C Screening (06/30/2022) Hepatitis C Screening abstracted [facility] Provider HEALTH MAINTENANCE Final Result * [...] Relevant to Health Maintenance Insurance [id number]
--- OUTSIDE RECORDS SUMMARY | 2025-10-10 09:56 | XMS_ITS | Encounter Summary ---
Author Organization [facility] Address [address] [place] [address] Phone Care Team Providers Care Catalyst Concentration Operator Name Role Phone Pcp, Unknown Primary Care Provider Unavailabl e Pcp, Unknown Primary Care Provider Unavailabl e Encounter Details Date Type Department Care Team (Late st Contact Info) Description 06/04/2023 Procedure Pass [facility], Ct Scan - [address] [address] Social History Tobacco Use Types Packs/Day Years [...] AM EST documented as of this encounter Plan of Treatment Not on file documented as of this encounter Visit Diagnoses Not on filedocumented in this encounter Care Teams Catalyst Concentration Operator Relationship Specialty Start Date End Date Pcp, Unknown PCP - General 05/27/22 12/22/24 Pcp, Unknown PCP - General 12/23/24 documented as of this encounter Additional Source Comments The information contained in this document represents components of the legal health record. It is not the complete legal health record.[facility]
--- OUTSIDE RECORDS SUMMARY | 2025-10-10 09:56 | XMS_ITS | Encounter Summary ---
Author Organization [facility] Address [address] [place] [address] Phone Care Team Providers Care Envelope Cutter Name Role Phone Pcp, Unknown Primary Care Provider Unavailabl e Pcp, Unknown Primary Care Provider Unavailabl e Encounter Details Date Type Department Care Team (Late st Contact Info) Description 06/05/2023 Procedure Pass [facility], [address] [address] Social History Tobacco Use Types Packs/Day Years [...] on filedocumented in this encounter Care Teams Envelope Cutter Relationship Specialty Start Date End Date Pcp, Unknown PCP - General 05/27/22 12/22/24 Pcp, Unknown PCP - General 12/23/24 documented as of this encounter Additional Source Comments The information contained in this document represents components of the legal health record. It is not the complete legal health record.[facility]
--- OUTSIDE RECORDS SUMMARY | 2025-10-10 09:56 | XMS_ITS | Data Portability ---
Author Organization [place] - [facility], [facility] Address [address] [place] [phone] Care Team Providers Care Auction Clerk Name Role Phone [facility] Primary Care Provider Assessment Encounter Date Assessment Date Assessment LastModified [...] I reviewed his most recent audiogram from [place]. I reviewed his MRI from 2022. Masking [...] audio gram No observ ation record ed. [email or web address] Not Available 06/18 10:38:55 Result Notes None recorded. Problems Name Problem SNOMED Code Status Onset Date Resolution Date Notes Provider Name and Address Organization Details Recorded Time Sensorineur al hearing loss of bilateral ears 490769982 Active 2023 DAYANA DE SANTIAGO, [address],[place] [address], [place], [phone], [facility] 4 13:51:45 Tinnitus of left ear 5795882694099 Active 2023 DAYANA DE SANTIAGO, [address],[place] [address], [place], [phone], [facility] 4 13:51:55 Problem Notes None recorded. Procedures Surgical History Date Name Laterality Status Provider Name and Address Organization Details Recorded Time 10/05/2024 Comp Audio with Tymps - 60522 & 81220 completed DAYANA DE SANTIAGO, [facility] [address] [facility],[address], [phone], [facility] 10/05/2024 13:51:37 Imaging Results None recorded. [...] Updated DateTime 06/29/2025 165.1 cm 27.5 kg/m2 39573.74 g Oliva Sandoval MD - [facility] 06/29/2025 10:27:50 Social History None recorded. Functional Status None recorded. Mental Status None recorded. Family History Nothing Reported. Medical History No medical history recorded. Past Encounters Encounter ID Performer Location Encounter Start Date Encounter Closed Date Diagnosis/Indication Diagnosis SNOMED-CT Code Diagnosis ICD10 Code Diagnosis IMO Codes Diagnosis Note [id number] ANASTASIYA HERRERA PA-C [facility] on [address] [place] [phone] 10/05/2024 13:27:51 10/05/2024 14:56:43 Sensorineural hearing loss of bilateral ears 900103752 H90.3 Tinnitus of left ear 214 0677883 106 H93.12 Right Ear:Profou nd SNHL with no speech discrimina tion.Type A tympanogra m.Left Ear:Mild to severe SNHL with excellent speech discrimina tion.Type A tympanogra m. [id number] KAVON VASQUEZ MD [facility] on [address] [place] [phone] 06/29/2025 10:17:03 06/29/2025 10:39:15 Sensorineural hearing loss of bilateral ears 240095449 H90.3 Tinnitus of left ear 674 8497277 106 H93.12 Health Concerns Section Related Observation LastModified by Organization Detai ls LastModified Time None Recorded Concern Status LastModified by Organization Details LastModified Time None Recorded Advance Directives Directive None Recorded Payers Insurance Date Sequence Insurance Name Policy Number Policy Turner Covered Member ID Turner Member ID Guarantor Name 06/29/2025 1 [facility] - DOS ON OR AFTER 2023 - MEDICARE ADVANTAGE [place] (MEDICARE REPLACEMENT/ADV ANTAGE - PPO) Dagoberto Sung [id number] Dagoberto Sung 06/11/2025 1 [employer] (MEDICARE REPLACEMENT/ADV ANTAGE - PPO) Dagoberto Sung [id number] Dagoberto Sung Notes Date Note Type Note [...] life. 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 Anastasiya thibodeaux [place] - [facility] 10/05/2024 14:53:48 5 text/html ROS as [...] life. 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 KAVON VASQUEZ MD [address] [place] [address], [place], [phone], [facility] - [facility] 06/30/2025 14:08:56
[2025-10-10 09:57] VITALS: BMI 28.3
--- NOTE | 2025-10-10 09:57 | MHC.OFFVIS ---
Vital Signs 10/10/25 09:57 Height 5 ft 5 in Weight 170 lb BMI 28.3 Intake Visit Reasons: Right knee pain and giving way Intake Note: Dagoberto is a 60 year old male who presents with complaints of progressively worsening right knee pain and giving way. The patient describes his pain as sharp in nature. Most of the pain is along the medial aspect of his knee. His symptoms have gotten worse over the last 6 months in spite of continued non operative treatments. He has failed the last 6 weeks of conservative treatment which has included Tylenol, anti-inflammatory medicines and physical therapy exercises. Allergies morphine Allergy (Mild, Uncoded 09/26/25 13:20) Vomiting Medication List - Last Reconciled 10/12/25 by Kyle Zuniga MD aspirin 1 tab PO DAILY atorvastatin 80 mg PO DAILY levothyroxine 125 mcg PO DAILY PFSH Medical History Arthritis Back pain Habitual snoring Wheezing Personal history of nicotine dependence Hypercholesteremia Hypothyroidism Deafness in right ear Tinnitus of left ear Dystrophic nail Eczema of both hands Lipoma of anterior chest wall Surgical History History of colonoscopy (~11/11/20) History of hand surgery H/O right inguinal hernia repair Family History Mother Diabetes Father Diabetes Alcoholism Sister Diabetes Other Substance use disorder Social History Housing: House Are you a primary laboratory animal care veterinarian to a significant other at home: No Do you presently have visiting nurse or other home services: No Alcohol intake: former Patient Tobacco Use Status: Former Tobacco user Tobacco use type: Cigarette e-Cigarette/Vaping Use: Never Used Second Hand Smoke Exposure: Yes service: No Current occupational status: retired and disabled Cognitive needs: No Hearing needs: No Vision needs: No Physical Exam Vital Signs: BMI result Body Mass Index 28.3 Const Other: Well-nourished well-developed very friendly male awake alert and oriented x3 in no acute distress Extrem Other: Right knee examination shows a minimal effusion, mild crepitus with range of motion, tenderness along his medial joint line, positive Yaakov's test, no instability Results Reviewed Results Reviewed: Standing full weight-bearing x-rays of the patient's right knee show mild diffuse joint space narrowing, no acute bony abnormalities MRI of the patient's right knee shows mild degenerative changes as well as a tear of the medial meniscus Assessment & Plan Assessment & Plan (1) Tear of medial meniscus of right knee: Code(s): S83.241A - Other tear of medial meniscus, current injury, right knee, initial encounter Category: Medical Plan Mr. Sung presents with right knee pain and mechanical symptoms due to a medial meniscus tear. I had a lengthy discussion with the patient regarding the treatment options. At this point he has failed continued non operative treatments. The risks and benefits of right knee arthroscopic surgery were discussed at length with the patient. The patient wishes to proceed. Surgery will involve right knee arthroscopic partial medial meniscectomy. He does understand that he may not get 100% relief of his symptoms depending on the severity of his degenerative changes. He will be given a prescription for pain medicine at the time of his surgery. He will follow up as instructed. Feel free to call me at any time should questions regarding his orthopedic management arise. I spent 22 minutes in reviewing the patient's records and imaging studies, seeing the patient and documenting in the medical record. Coding Level of Care Code Est Pt Level 3 (20969) Add On Problem Visit Only Diagnoses Tear of medial meniscus of right knee S83.241A
== END 2025-10-10 10:44 | disposition home or self-care (01) ==
LOC: HO.HOS 09:50
PROVIDERS: PCP Internal Medicine; Visit Provider Orthopaedic Surgery
DX: S83.241A Other tear of medial meniscus, current injury, right knee, initial encounter (principal)
CPT/HCPCS: 99214; G2211

== ENCOUNTER → 2025-10-10 09:49 | Outpatient (BNVA) | payer OTHER, SELFPAY | PROVIDERS: PCP Internal Medicine; Visit Provider Orthopaedic Surgery | DX: S83.241A Other tear of medial meniscus, current injury, right knee, initial encounter (principal); X58.XXXA Exposure to other specified factors, initial encounter; Y92.9 Unspecified place or not applicable; Y93.9 Activity, unspecified; Y99.9 Unspecified external cause status | CPT/HCPCS: 99212 ==